=== PATIENT | male | born 1960 | race Caucasian/White ===

== ENCOUNTER 2018-04-03 11:04 | Outpatient (CLI) | payer MEDICAID, SELFPAY ==
--- NOTE | 2018-03-31 14:20 | DI.RAD_ITS ---
SYMPTOMS/DIAGNOSIS: NECK PAIN, M54.2 CERVICAL SPINE: The disc spaces are well maintained. The alignment appears normal. There are mild facet degenerative changes causing mild neural foraminal narrowing on the right at C5-6 and C6-7. IMPRESSION: Mild degenerative changes.
== END 2018-04-03 11:24 ==
PROVIDERS: PCP Nurse Practitioner; Visit Provider Family Medicine
DX: M54.2 Cervicalgia (principal); M47.812 Spondylosis without myelopathy or radiculopathy, cervical region
CPT/HCPCS: 72050

== ENCOUNTER 2018-07-28 08:49 | Outpatient (CLI) | payer MEDICAID, SELFPAY ==
--- NOTE | 2018-07-28 08:53 | DI.RAD_ITS ---
SYMPTOM/DIAGNOSIS: BILAT KNEE PAIN, M25.562, M25.561 LEFT KNEE: Three views. No priors. The articular surfaces appear well maintained. The bones are intact and normally mineralized. There is a well corticated osseous fragment seen adjacent to the anterior tibial tuberosity consistent with an old injury. The soft tissues are unremarkable. IMPRESSION: No acute abnormality. RIGHT KNEE: Three views. The articular surfaces are well maintained. The bones are intact and normally mineralized. The soft tissues are unremarkable. IMPRESSION: Negative examination.
== END 2018-07-28 09:09 ==
PROVIDERS: PCP Nurse Practitioner; Visit Provider Nurse Practitioner
DX: M25.561 Pain in right knee (principal); M25.562 Pain in left knee
CPT/HCPCS: 73562

== ENCOUNTER 2018-08-14 00:36 | Outpatient (CLI) | payer MEDICAID, SELFPAY ==
--- NOTE | 2018-08-14 10:12 | DI.MRI_ITS ---
SYMPTOMS/DIAGNOSIS: LT KNEE PAIN, M25.62 MRI OF THE LEFT KNEE: Routine noncontrast examination was performed. Comparison x-ray is 07/28/18. The anterior cruciate, posterior cruciate ligaments are intact as are the lateral collateral ligaments, extensor mechanism, medial and lateral retinaculum and popliteus tendon. There is mild increased signal seen within the fibers of the medial collateral ligament. There is a small amount of fluid seen surrounding the ligament. No evidence of a complete tear of the medial collateral ligament is present. There is marrow edema seen in the femoral condyles, medial greater than lateral. No evidence of an occult fracture or avascular necrosis is seen. The articular cartilage is well maintained. There is a small amount of fluid in the joint space. There is a small popliteal cyst measuring 2.7 cm in length x 0.6 cm in AP diameter. No soft tissue mass or other focal fluid collections are seen. There is mild edema seen in the prepatellar soft tissues. There is no evidence of a meniscal tear. IMPRESSION: 1. Abnormal signal within the medial collateral ligament and a small amount of fluid seen around the ligament. Findings suggestive of a grade II sprain of the MCL. 2. No evidence of a meniscal tear. 3. Marrow edema seen in the distal femur which may represent contusion. No evidence of an occult fracture. 4. Small popliteal cyst.
== END 2018-08-14 00:56 ==
PROVIDERS: PCP Nurse Practitioner; Visit Provider Nurse Practitioner
DX: M25.562 Pain in left knee (principal); S83.412A Sprain of medial collateral ligament of left knee, initial encounter; M71.22 Synovial cyst of popliteal space [Baker], left knee; M89.8X6 Other specified disorders of bone, lower leg
CPT/HCPCS: 73721

== ENCOUNTER 2018-08-31 00:52 | Outpatient (CLI) | payer MEDICAID, SELFPAY ==
--- NOTE | 2018-08-31 09:46 | DI.MRI_ITS ---
SYMPTOMS/DIAGNOSIS: RIGHT KNEE PAIN, M25.561 RIGHT KNEE MRI: MRI examination of the knee was performed according to the usual protocol. There was significant motion artifact on multiple pulse sequences. There is abnormal signal of the posterior-most aspect of the lateral tibial plateau and, on a couple of images, there appears to be a linear cortical signal abnormality consistent with nondisplaced fracture of uncertain age. There is abnormal signal in the tibial attachment of the lateral meniscus without evidence of a defined tear. There is abnormal signal in the popliteus muscle and tendon consistent with a partial-thickness tear and/or tendinosis. Medial meniscus appears intact. Cruciate ligaments appear intact. No other significant bony signal abnormality seen. Extensor mechanism is unremarkable except for some cartilage irregularity of the patellar and femoral articular cartilage at the lateral patellofemoral joint. CONCLUSION: Findings suggesting a nondisplaced fracture of posterior aspect of lateral tibial plateau of uncertain age. Possible nondisplaced tear, tibial attachment of the lateral meniscus. Popliteus tendinosis and/or partial- thickness tear.
== END 2018-08-31 01:12 ==
PROVIDERS: PCP Nurse Practitioner; Visit Provider Nurse Practitioner
DX: M25.561 Pain in right knee (principal); S82.141A Displaced bicondylar fracture of right tibia, initial encounter for closed fracture; S86.819A Strain of other muscle(s) and tendon(s) at lower leg level, unspecified leg, initial encounter; S83.281A Other tear of lateral meniscus, current injury, right knee, initial encounter
CPT/HCPCS: 73721

== ENCOUNTER 2018-10-05 13:58 | Outpatient (CLI) | payer MEDICAID, SELFPAY ==
--- NOTE | 2018-10-05 14:17 | W.PREOPHP ---
Date of service: 10/05/18 Assessment and Plan (1) Tear of lateral meniscus of right knee: Current visit: Yes Status: Chronic Right knee arthroscopy with possible partial lateral meniscectomy. Details of surgery were discussed with patient as well as risks and pertinent anatomy. All questions were answered. Qualifiers: Encounter type: subsequent encounter Meniscus tear of knee type: unspecified type Tear current or old: current Qualified Code(s): S83.281D - Other tear of lateral meniscus, current injury, right knee, subsequent encounter History of Present Illness Chief Complaint: Right knee pain Narrative: Ivan is a 58-year-old male comes in today for preop history and physical for right knee arthroscopy. He had an injury back in April where he was cutting down a tree and the tree kicked back at him causing him to fall. He did not have pain right away, but the next day he noticed that both of his knees are starting to bother him. He does not member any swelling in the knees. At that time he thought it was just a bruise, so he did not readily seek treatment right away. Eventually the left knee did start to get better, but the right knee continued to bother him. He was going to start physical therapy, but since he was still having pain in his right knee and had an orthopedics appointment, they held off on physical therapy. He has pain with going up and down stairs, as well as squatting and kneeling. He does not describe any specific instances of twisting that cause him pain. X-rays of the knee did not reveal any pathology, however MRI did reveal some signals in the lateral meniscus that may represent a tear. Since he has been dealing with this since April, Dr. Stephens suggests an arthroscopy of the left knee, and the patient is anxious to proceed. Pertinent Surgical Information Ivan does mention that experiences some chest pain, but notes that it is mostly when he is sitting down after he is eating, and he does have a pretty significant history of GERD. He denies any chest pain when he is active, going up and down stairs, or walking around outside which he does often. Patient denies history of hypertension, CVA, [place], angina, asthma, COPD, renal or liver disorders, hepatitis, bleeding disorders, diabetes, immune or thyroid disorders. No complications from anesthesia. Review of Systems Constitutional Denies fever(s) ENT Denies dizziness and Denies sore throat Cardiovascular Reports chest pain (Occurs in a seated position after eating. No chest pain with activity.), Denies palpitations and Denies dyspnea Respiratory Denies cough and Denies dyspnea Gastrointestinal Denies abdominal pain, Denies melena, Denies hematochezia, Denies diarrhea, Denies nausea and Denies vomiting Genitourinary Denies hematuria and Denies dysuria Neurologic Denies dizziness Endocrine Denies palpitations PFSH Medical History Neck and shoulder pain (Acute) Hiatal hernia (Chronic) Migraine headache (Chronic) Shingles (Acute) Dyspepsia GERD (gastroesophageal reflux disease) History of ETOH abuse Left shoulder pain Low back pain Eriberto-Schlatter's disease Sacral foraminal stenosis Surgical History Colonoscopy - MAC (12/16/17) Cyst removal, right hand EGD - [facility] (12/16/17) Family History Mother Diabetes Sister Diabetes Brother Hodgkins lymphoma Hypertension Social History Smoking/Tobacco Use Status: Current every day Drug use: Daily Do you feel safe in your relationship?: Yes Meds Home Medications Medication Instructions Recorded Confirmed Type gabapentin 800 mg PO TID tab-cap 11/07/17 10/05/18 History simvastatin 40 mg PO DAILY tab-cap 12/13/17 10/05/18 History lansoprazole [Prevacid] 15 mg PO DAILY 10/05/18 10/05/18 History sildenafil 25 mg tablet 25 mg PO DAILY PRN 10/05/18 10/05/18 History Allergies Allergy/AdvReac Type Severity Reaction Status Date / Time No Known Allergies Allergy Unverified 10/05/18 13:48 Exam [facility] Head: normocephalic and atraumatic General nose exam: no nasal discharge Throat: uvula midline and no uvular edema Other: soft palate rises symmetrically, no erythema Eyes Conjunctivae: conjunctivae normal Sclera: sclerae normal Pupils: PERRL Resp Effort & Inspection: normal respiratory effort Auscultation: clear to auscultation bilaterally and no wheezes Cardio Rate: regular rate Rhythm: regular rhythm Heart Sounds: S1 normal, S2 normal and no murmurs
--- NOTE | 2018-10-05 14:27 | HPE_ITS ---
Date of service: 10/05/18 Assessment and Plan (1) Tear of lateral meniscus of right knee: Current visit: Yes Status: Chronic Right knee arthroscopy with possible partial lateral meniscectomy. Details of surgery were discussed with patient as well as risks and pertinent anatomy. All questions were answered. Qualifiers: Encounter type: subsequent encounter Meniscus tear of knee type: unspecified type Tear current or old: current Qualified Code(s): S83.281D - Other tear of lateral meniscus, current injury, right knee, subsequent encounter History of Present Illness Chief Complaint: Right knee pain Narrative: Ivna is a 58-year-old male comes in today for preop history and physical for right knee arthroscopy. He had an injury back in April where he was cutting down a tree and the tree kicked back at him causing him to fall. He did not have pain right away, but the next day he noticed that both of his knees are starting to bother him. He does not me mber any swelling in the knees. At that time he thought it was just a bruise, so he did not readily seek treatment right away. Eventually the left knee did start to get better, but the right knee continued to bother him. He was going to start physical therapy, but since he was still having pain in his right knee and had an orthopedics appointment, they held off on physical therapy. He has pain with going up and down stairs, as well as squatting and kneeling. He does not describe any specific instances of twisting that cause him pain. X-rays of the knee did not reveal any pathology, however MRI did reveal some signals in the lateral meniscus that may represent a tear. Since he has been dealing with this since April, Dr. Stephens suggests an arthroscopy of the left knee, and the patient is anxious to proceed. Pertinent Surgical Information Ivan does mention that experiences some chest pain, but notes that it is mostly when he is sitting down after he is eating, and he does have a pretty significant history of GERD. He denies any chest pain when he is active, going up and down stairs, or walking around outside which he does often. Patient denies history of hypertension, CVA, [place], angina, asthma, COPD, renal or liver disorders, hepatitis, bleeding disorders, diabetes, immune or thyroid disorders. No complications from anesthesia. Review of Systems Constitutional Denies fever(s) ENT Denies dizziness and Denies sore throat Cardiovascular Reports chest pain (Occurs in a seated position after eating. No chest pain with activity.), Denies palpitations and Denies dyspnea Respiratory Denies cough and Denies dyspnea Gastrointestinal Denies abdominal pain, Denies melena, Denies hematochezia, Denies diarrhea, Denies nausea and Denies vomiting Genitourinary Denies hematuria and Denies dysuria Neurologic Denies dizziness Endocrine Denies palpitations [facility] Medical History Neck and shoulder pain (Acute) Hiatal hernia (Chronic) Migraine headache (Chronic) Shingles (Acute) Dyspepsia GERD (gastroesophageal reflux disease) History of ETOH abuse Left shoulder pain Low back pain Eriberto-Schlatter's disease Sacral foraminal stenosis Surgical History Colonoscopy - [facility] (12/16/17) Cyst removal, right hand EGD - [facility] (12/16/17) Family History Mother Diabetes Sister Diabetes Brother Hodgkins lymphoma Hypertension Social History Smoking/Tobacco Use Status: Current every day Drug use: Daily Do you feel safe in your relationship?: Yes Meds Home Medications Medication Instructions Recorded Confirmed Type gabapentin 800 mg PO TID tab-cap 11/07/17 10/05/18 History simvastatin 40 mg PO DAILY tab-cap 12/13/17 10/05/18 History lansoprazole [Prevacid] 15 mg PO DAILY 10/05/18 10/05/18 History sildenafil 25 mg tablet 25 mg PO DAILY PRN 10/05/18 10/05/18 History Allergies Allergy/AdvReac Type Severity Reaction Status Date / Time No Known Allergies Allergy Unverified 10/05/18 13:48 Exam [facility] Head: normocephalic and atraumatic General nose exam: no nasal discharge Throat: uvula midline and no uvular edema Other: soft palate rises symmetrically, no erythema Eyes Conjunctivae: conjunctivae normal Sclera: sclerae normal Pupils: PERRL Resp Effort & Inspection: normal respiratory effort Auscultation: clear to auscultation bilaterally and no wheezes Cardio Rate: regular rate Rhythm: regular rhythm Heart Sounds: S1 normal, S2 normal and no murmurs
== END 2018-10-05 14:18 ==
PROVIDERS: PCP Nurse Practitioner; Visit Provider Orthopaedic Surgery
DX: S83.281D Other tear of lateral meniscus, current injury, right knee, subsequent encounter (principal); Z01.818 Encounter for other preprocedural examination
CPT/HCPCS: NC

== ENCOUNTER 2018-10-09 07:30 | Day surgery (SDC) | payer MEDICAID, SELFPAY ==
[2018-10-09 07:49] VITALS: BP 116/79; PULSE 68; RESP 16; TEMP 35.6; O2SAT 99
[2018-10-09] MEDS: Lactated Ringers 1,000 ML 80 ML IV (08:14)
--- NOTE | 2018-10-09 11:25 | W.PM.DSUDISC ---
Discharge Plan Disposition Patient Disposition: HOME Condition: Good Discharge Details Reason For Visit: arthroscopy R knee Attending Provider: Jason Stephens Primary Care Provider: Caity Kulkarni Home Meds and New Rx's Prescriptions: New ibuprofen 800 mg tablet 800 mg PO TID Qty: 30 RF: 0 oxycodone-acetaminophen 5-325 mg tablet 1 tab PO Q6H PRN (Reason: pain) Qty: 14 RF: 0 Continued gabapentin 400 MG capsule 800 mg PO TID RF: 0 simvastatin 40 MG tablet 40 mg PO DAILY RF: 0 sildenafil [Viagra] 25 mg tablet 25 mg PO DAILY PRNRF: 0 lansoprazole [Prevacid] 15 mg Capsule,Delayed Release(Dr/Ec) 15 mg PO DAILY RF: 0 Discharge Instructions Additional Instructions: Crutches to walk. Put as much weight on R leg as your pain allows. Discontinue crutches when you can step on R leg with minimal pain. Apply cryocuff to R knee 4 times/day for 1 hour each time. Remove dressings, shower, and get incisions wet after 48 hours. Leave incisions uncovered when they are dry and sealed. Outpatient physical therapy on Tue or for rehab R knee post-arthroscopic plica excision. Follow up with in 2 weeks. Take ibuprofen as prescribed for 10 days. Take oxycodone, if needed, for breakthru pain. Referrals: Jason Stephens MD [ [facility] STAFF PHYSICIAN] - (f/u in 2 weeks.) Equipment/Supplies: Partial Weight Bearing Crutches Activity:: Activity as Tolerated Remove Dressings/Wound Care:: 48 hours Shower/Bathe:: 48 hours Diet:: As Tolerated Discharge Orders Discharge Orders: Discharge Order (Routine); Ordered 10/09/18 Ordered By: Jason Stephens DS: Diagnosis Discharge Diagnosis (1) Synovitis of right knee: Status: Acute
[2018-10-09 11:27] VITALS: BP 140/97; PULSE 62; RESP 11; TEMP 36.6; O2SAT 99
[2018-10-09 11:32] VITALS: BP 144/80; PULSE 56; RESP 11; TEMP 36.6; O2SAT 100
[2018-10-09 11:37] VITALS: BP 136/78; PULSE 58; RESP 10; TEMP 36.6; O2SAT 100
[2018-10-09 12:39] VITALS: BP 131/73; PULSE 65; RESP 18; TEMP 36.4; O2SAT 96
--- NOTE | 2018-10-09 17:12 | ROE_ITS ---
DATE OF PROCEDURE: October 09, 2018 PREOPERATIVE DIAGNOSIS: Internal derangement, right knee. POSTOPERATIVE DIAGNOSIS: Medial patella plica syndrome (synovitis, right knee). PROCEDURE: Arthroscopic resection of plica (limited synovectomy). ANESTHESIA: General. SURGEON: Jason Stephens M.D. INDICATIONS: This is a 58-year-old white male who has been bothered by right knee pain since an inju ry in April of 2018. He was cutting down a tree and the tree kicked back on him, causing him to fa ll. He began experiencing pain the following day, and that has persisted to this day. It hurts him to go up and down stairs, as well as with squatting and kneeling. He has not responded to conservati ve treatment. MRI scan was non-diagnostic. There was an abnormal signal in the posterior horn of th e lateral meniscus, and that was it. Because of failure to improve over the past five months, arthro scopy was recommended in order to determine an accurate diagnosis to provide a basis for treatment to alleviate his pain. The risks and complications of the procedure were explained to the patient in d etail preoperatively. PROCEDURE: The patient was taken to the Operating Room on 10/09/18. He was placed supine on the oper ating table and a general anesthetic was administered. The right leg was placed in the arthroscopic leg rosen and then the right knee was prepped and draped free in the usual sterile fashion. Arthros copic portals were established. The right knee was inflated with normal saline solution using the ar throscopy pump, and then routine arthroscopic examination proceeded. Intraoperative photographs were obtained to document findings. Upon entering the medial compartment, the medial meniscus was intact and undamaged. There was eviden ce of some Grade 1 OA in the medial compartment, mostly on the tibial plateau. Intercondylar notch with intact anterior and posterior cruciate ligaments. The lateral compartment showed a normal lateral meniscus and normal articular cartilage in the latera l compartment. The lateral meniscus was stable to probing with a right-angle probe. The suprapatell ar pouch was clear. There was a very distinct and pronounced medial patellar plica present. This di d, in fact, appear to impinge on the medial femoral condyle. Through a supermedial portal, the 90-de gree high radio frequency electrocautery wand was introduced and the plica was vaporized. The patell ofemoral joint showed normal patellar tracking and normal articular cartilage in the patellofemoral j oint. The right knee was irrigated with saline solution using the arthroscopy pump until the outflow was cl ear. 20 cc's of 0.5% Marcaine with an epinephrine solution along with 4 mg of morphine were instille d into the right knee and all instruments were removed from the knee. The arthroscopy portals were i nfiltrated with 0.5% Marcaine with an epinephrine solution and approximated with interrupted #4-0 Nyl on sutures. Sterile dressings were applied followed by a light compressive dressing to the right kne e. The patient's anesthesia was reversed without complications. Blood loss was minimal. He was dis charged to the recovery room in good condition. The patient was discharged home from the Day Surgery Unit when fully recovered from his general anest hesia. He was given instructions to elevate his right knee on one to two pillows as much as possible for the next 48 hours. He is to apply a Cryo Cuff to the right knee four times a day for an hour ea ch time. He may be weightbearing as tolerated with crutches. He may discontinue the crutches as pollo n as discomfort allows. He may remove his dressings, shower and get his incisions wet after 48 hours . He can leave the incisions uncovered when they are dry and sealed. He will begin outpatient physi key therapy on Tuesday or for range of motion and strengthening of his right knee. He was given a prescription for pain of Hydrocodone 5/325 one tablet every six hours, as needed. He will f ollow-up with me in two weeks.
== END 2018-10-09 13:10 | disposition home or self-care (01) ==
PROVIDERS: PCP Nurse Practitioner; Visit Provider Orthopaedic Surgery
PROC: (CPT 29870; principal; 2018-10-09 08:30)
DX: M67.51 Plica syndrome, right knee (principal); W19.XXXA Unspecified fall, initial encounter
CPT/HCPCS: 29875; E0114; J0690; J1100; J1885; J2405; J3010

== ENCOUNTER 2019-03-23 16:47 | Outpatient (REF) | payer MEDICAID, SELFPAY ==
[2019-03-23 20:57] LABS: ALT 30 U/L (16-63); AST 21 U/L (15-37); Anion Gap 12.6 mmol/L (3-11); BUN 13 mg/dL (7-18); C-Reactive Protein 0.13 mg/dL (0.0-0.3); CO2 24.4 mmol/L (21.0-32.0); CREATININE 1.11 mg/dL (0.70-1.30); Calcium 9.2 mg/dL (8.5-10.1); Chloride 103 mmol/L (98-107); Glucose 107 mg/dL (70-100); Potassium 3.8 mmol/L (3.5-5.1); Sodium 140 mmol/L (136-145)
[2019-03-23 21:23] LABS: ESR 13 mm/hr (1-20)
[2019-03-26 11:02] LABS: Rheumatoid Factor 8 IU/mL (<12.5)
== END 2019-03-23 17:07 ==
LOC: NCHCN 16:47
PROVIDERS: PCP Nurse Practitioner; Visit Provider Nurse Practitioner Family
DX: F10.11 Alcohol abuse, in remission (principal); Z79.899 Other long term (current) drug therapy; R25.2 Cramp and spasm
CPT/HCPCS: 80048; 85652; 84450; 84460; 86140; 86431

== ENCOUNTER 2019-12-20 11:32 | Outpatient (CLI) | payer MEDICAID, SELFPAY ==
[2019-12-20 11:39] VITALS: BP 123/83; PULSE 71; RESP 17; TEMP 36.7; O2SAT 97
--- NOTE | 2019-12-20 12:10 | DI.RAD_ITS ---
EXAM: XR PAIN CLINIC LUMBAR SP 2V CLINICAL HISTORY: Dx: Lumbar Radiculopathy. TECHNIQUE: Fluoroscopy was provided for the referring physician for guidance with performing pain cl inic injection procedure. COMPARISON: No exams were available for comparison FINDINGS: Please see procedure note for details. Fluoro time: 57.6 s, 12.19 mGy RADIATION DOSE DELIVERED:
[2019-12-20] MEDS: Omnipaque 240 MG/ML 50 ML BTL IJ (12:15)
[2019-12-20] MEDS: Dexamethasone Sod. Phos./Pres-Free 10 MG/ML VIAL IJ (12:15)
[2019-12-20 12:22] VITALS: BP 141/86; PULSE 71; RESP 12; O2SAT 98
--- NOTE | 2019-12-20 13:52 | PDOC.PAIN_ITS ---
Pain Clinic Procedure Note Procedure Note Procedure Note: LUMBAR / SACRAL TRANSFORAMINAL INJECTION GISEL TIJERINA has been referred to the [facility] for a transforaminal nerve root block and steroid injection. COMMENTS: He did very well with this procedure on 12/20/[address] Mcduffie. He was seen in our clinic for re-evaluation on 12/11/19. I did review his last lumbar spine MRI from 09/22/17. DX: Lumbosacral radiculopathy Patient was interviewed and the medical record reviewed. There were no medical, pharmacologic, radiographic or other structural contraindications to attempting fluoroscopically guided transforaminal nerve root block and epidural steroid injection. Risks and expected side effects as well as potential benefit of the procedure were reviewed and voiced concerns addressed. The printed consent form was signed and witnessed. Standard time-out procedure was performed. Patient was placed in the prone position on the fluoroscopy table and automated blood pressure cuff and pulse oximeter applied. Fluoroscopy was utilized to identify the [right L4-L5 neural foramen between L4 and L5. A skin jolie was made for the needle insertion site. A Chlorhexadine prep was carried out, and sterile drapes were applied. Local anesthesia was achieved in the skin and subcutaneous tissues. A 22 gauge curved tip spinal needle was then inserted, advanced with fluoroscopic guidance into the neural foramen, confirmed on the lateral view. After negative aspiration, 2 ml of Omnipaque 240 was injected confirming position in A/P and lateral views. This showed a good spread of dye transforaminally into the epidural space. There was no vascular update with contrast injection under continuous fluoroscopy and digital substraction. 15 mg of Dexamethasone was injected, followed by 0.5 ml of 1% Xylocaine flush for the nerve root block, as well. There was no unusual discomfort expressed.The needle was withdrawn. The patient tolerated the procedure well. A Band-Aid was applied. Vital signs were stable throughout the procedure and were as recorded in nursing records. If given, dosages of intravenous drugs for anxiolysis and analgesia were documented in nursing records. Follow up plans and appointments were discussed. Post procedure instruction was given as documented in nursing records and patient was discharged in the care of an identified local intermodal truck driver. COMMENTS:He can have this procedure up to 3 times per 12 months if it is found to be effective. CC: Caity Kulkarni
== END 2019-12-20 11:52 ==
PROVIDERS: PCP Nurse Practitioner; Visit Provider Preventive Medicine Occupational Medicine
DX: M54.17 Radiculopathy, lumbosacral region (principal)
CPT/HCPCS: 64483; 72100; Q9967

== ENCOUNTER 2020-01-29 13:50 | Outpatient (CLI) | payer MEDICAID, SELFPAY ==
--- NOTE | 2020-01-29 15:10 | PDOC.PAIN_ITS ---
Pain Clinic Procedure Note Procedure Note Procedure Note: LUMBAR / SACRAL TRANSFORAMINAL INJECTION GISEL TIJERINA has been [facility] to [facility] for a transforaminal nerve root block and steroid injection. Pre-operative diagnosis: lumbar radiculopathy Post-operative diagnosis: same as above COMMENTS: patient has had injections in the past which has helped alleviate his right leg symptoms. In 11/2019, he underwent right L4-5 TFESI which provided some pain relief lasting for 1 week and he continues to have right leg pain. he reports right groin pain and right posterior leg pain. It was discussed during his clinic evaluation with Ms Belkys Madison APRN that if right L4-5 TFESI fails to provide significant pain relief, then a trial of right L5-S1 TFESI will be tried. He is here for right L5-S1 TFESI today for both diagnostic and possible therapeutic purposes. please note MRI L spine done in 2017 showed severe right neural foraminal narrowing at L 4-5 and moderate to severe neural foraminal narrowing on the right at L 5-S1. Patient was interviewed and the medical record reviewed. There were no medical, pharmacologic, radiographic or other structural contraindications to attempting fluoroscopically guided transforaminal nerve root block and epidural steroid injection. Risks and expected side effects as well as potential benefit of the procedure were reviewed and voiced concerns addressed. The printed consent form was signed and witnessed. Standard time-out procedure was performed. Patient was placed in the prone position on the fluoroscopy table and automated blood pressure cuff and pulse oximeter applied. Fluoroscopy was utilized to identify the right neural foramen between L5 and sacral ala . A skin jolie was made for the needle insertion site. A Chlorhexadine prep was carried out, and sterile drapes were applied. Local anesthesia was achieved in the skin and subcutaneous tissues. A 22 gauge curved tip spinal needle was then inserted, advanced with fluoroscopic guidance into the neural foramen, however, there was resistance with bony prominence, despite multiple attempts, it was difficult to access the foramen. AP and lateral views were checked, needle cannot be further advanced into the foramen due to severe stenosis. I discussed with patient that we can change our approach to L5-S1 interlaminar with right paramedian approach. He was agreeable to this. I did discuss with patient that this would provide therapeutic value but unfortunately, will be less accurate in providing diagnostic value for a right L5-S1 nerve root block. He is interested in more pain relief and he is not ready to discuss surgical interventions at this point. With patient's verbal consent, procedure was changed to L5-S1 LESI. Using right paramedian approach, a 18 gauge Touhy needle was advanced in AP and then lateral views until it was engaged in ligamentum flavum. Using loss of resistance technique, needle gained access to the epidural space. After negative aspiration, 2 ml of Omnipaque 240 was injected confirming position in A/P and lateral views. This showed a good spread of dye into the posterior epidural space. There was no vascular update with contrast injection under continuous fluoroscopy. 15 mg of Dexamethasone was injected, followed by 0.5 ml of 1% lidocaine flush. There was no unusual discomfort expressed.The needle was withdrawn. The patient tolerated the procedure well. A Band-Aid was applied. Vital signs were stable throughout the procedure and were as recorded in nursing records. Follow up plans and appointments were discussed. Post procedure instruction was given as documented in nursing records and patient was discharged in the care of an identified pick up and delivery driver. COMMENTS: patient tolerated procedure well without issue. patient instructed to see which procedure provides more pain relief, LESI vs TFESI and future injections can be planned accordingly. I personally performed the entire procedure. Werner Muñoz MD Pain Management CC: Caity Kulkarni
[2020-01-29 15:23] VITALS: BP 114/71; PULSE 72; RESP 17; TEMP 36.5; O2SAT 97
--- NOTE | 2020-01-29 16:10 | DI.RAD_ITS ---
EXAM: XR PAIN CLINIC LUMBAR SP 2V CLINICAL HISTORY: Dx: Lumbar Radiculopathy. TECHNIQUE: Fluoroscopy was provided for the referring physician for guidance with performing injecti on procedure. COMPARISON: No exams were available for comparison FINDINGS: Please see procedure note for details. Fluoro Time: 79.9 sec RADIATION DOSE DELIVERED:
[2020-01-29] MEDS: Dexamethasone Sod. Phos./Pres-Free 10 MG/ML VIAL IJ (16:12)
[2020-01-29 16:13] VITALS: BP 135/88; PULSE 69; RESP 16; O2SAT 96
[2020-01-29] MEDS: Omnipaque 240 MG/ML 50 ML BTL IJ (16:13)
== END 2020-01-29 14:10 ==
PROVIDERS: PCP Nurse Practitioner; Visit Provider Internal Medicine
DX: M54.16 Radiculopathy, lumbar region (principal)
CPT/HCPCS: 64483; 72100; Q9967

== ENCOUNTER 2020-03-18 07:40 | Outpatient (CLI) | payer MEDICAID, SELFPAY ==
--- NOTE | 2020-03-18 06:00 | DI.RAD_ITS ---
EXAM: XR PAIN CLINIC LUMBAR SP 2V CLINICAL HISTORY: Dx: Lumbar Spondylosis TECHNIQUE: 2D and realtime digital imaging was performed. Fluoroscopy was provided in the OR COMPARISON: No exams were available for comparison FINDINGS: C-arm fluoroscopy utilized by Dr. Muñoz. Please see Dr. Muñoz's procedure note. Hard copies show needles p laced bilaterally adjacent to the facet joints at what appear to be the L3-4 L4-5 and L5-S1 levels. Fluoro time, 33 seconds. IMPRESSION: RADIATION DOSE DELIVERED: Total DLP
[2020-03-18 07:51] VITALS: BP 133/81; PULSE 71; RESP 16; TEMP 36.4; O2SAT 97
[2020-03-18] MEDS: Omnipaque 240 MG/ML 50 ML BTL IJ (08:28)
[2020-03-18] MEDS: Bupivacaine 0.5% Pres-Free 10 ML VIAL IJ (08:28)
--- NOTE | 2020-03-18 08:31 | PDOC.PAIN ---
Pain Clinic Procedure Note Procedure Note Procedure Note: Lumbar/Sacral Medial Branch Blocks GISEL TIJERINA has been referred to the [facility] for lumbar/sacral medial branch blocks. Pre-operative diagnosis: lumbar spondylosis Post-operative diagnosis: same as above COMMENTS: patient has axial back pain that is worse with bending forward than bending back - referred for diagnostic lumbar medial branch nerve block. Patient was interviewed and the medical record reviewed. There were no medical, pharmacologic, radiographic or other structural contraindications to attempting fluoroscopically guided local anesthetic lumbar/sacral medial branch blocks. Risks and expected side effects as well as potential benefit of the procedure were reviewed and voiced concerns addressed. The printed consent form was signed and witnessed. Standard time-out procedure was performed. Patient was placed in the prone position on the fluoroscopy table and automated blood pressure cuff and pulse oximeter applied. The skin entry points for approaching the anatomic target points of the segmental medial branches of bilateral L3, L4, L5-DR were identified with anfluoroscopy and marked. Following thorough Chlorhexadine preparation of the skin and draping and 1% lidocaine infiltration of the skin entry points and subcutaneous tissues, a 25 gauge spinal needle was placed under fluoroscopic guidance down on to the target point for each respective segmental medial branch.Position was confirmed in A/P, oblique and lateral views with 0.25ml of omnipaque 240. Coult be this method .5ml 0.5% Bupivacaine was injected or 1% Lidocaine. Vital signs were stable throughout the procedure and were as recorded in the docflowsheet by the nursing staff. Follow up plans and appointments were discussed and was instructed to keep careful note of how the usual pain was modified by these injections. Specifically was asked to keep a pain diary for the next 24 hours using a numeric pain scale of 0-10 and report these results at the follow-up visit. Post procedure instruction was given as documented in the nursing documentation and having met discharge criteria. Patient was discharged from the [facility]. Based on the medial branches blocked today, if the patient has adequate relief and we are able to proceed to radiofrequency ablation, the treatment should result in the denervation of the bilateral L4/5 and L5/S1. We would expect to denervate a total of 4 facets during the radiofrequency ablation. COMMENTS: patient tolerated procedure well. he is instructed to keep pain log for the next 4 hours and report to the pain clinic. I performed the entire procedure. Werner Muñoz MD Pain Management CC: Stressenger,Caity
[2020-03-18 08:38] VITALS: BP 143/96; PULSE 72; RESP 13; O2SAT 98
== END 2020-03-18 08:00 ==
PROVIDERS: PCP Nurse Practitioner; Visit Provider Internal Medicine
DX: M47.816 Spondylosis without myelopathy or radiculopathy, lumbar region (principal)
CPT/HCPCS: 64493; 64494; 72100; Q9967

== ENCOUNTER 2020-04-07 14:13 | Outpatient (REF) | payer MEDICAID, SELFPAY ==
[2020-04-11 09:41] LABS: 2-Hydroxy Ethyl Flurazepam Not Detected ng/mL (Cutoff: 10); 6-monoacetylmorphine Not Detected ng/mL (Cutoff: 25); Alpha-Hydroxy Midazolam Not Detected ng/mL (Cutoff: 10); Alpha-Hydroxy Triazolam Not Detected ng/mL (Cutoff: 10); Alpha-Hydroxyalprazolam Not Detected ng/mL (Cutoff: 10); Alpha-OH-alprazolam Glucuronid Not Detected ng/mL (Cutoff: 50); Alprazolam Not Detected ng/mL (Cutoff: 10); Amphetamines Negative ng/mL (Cutoff: 500); Barbiturates Negative ng/mL (Cutoff: 200); Buprenorphine Not Detected ng/mL (Cutoff: 5); Chlordiazepoxide Not Detected ng/mL (Cutoff: 10); Clobazam Not Detected ng/mL (Cutoff: 10); Clonazepam Not Detected ng/mL (Cutoff: 10); Cocaine Negative ng/mL (Cutoff: 150); Codeine Not Detected ng/mL (Cutoff: 25); Comment Normal; Creatinine, U 110.7 mg/dL; Diazepam Not Detected ng/mL (Cutoff: 10); Dihydrocodeine Not Detected ng/mL (Cutoff: 25); EDDP Present ng/mL (Cutoff: 25); Fentanyl Not Detected ng/mL (Cutoff: 2); Flurazepam Not Detected ng/mL (Cutoff: 10); Hydrocodone Not Detected ng/mL (Cutoff: 25); Hydromorphone Not Detected ng/mL (Cutoff: 25); Hydromorphone-3-beta-glucuroni Not Detected ng/mL (Cutoff: 100); Lorazepam Not Detected ng/mL (Cutoff: 10); Lorazepam Glucuronide Not Detected ng/mL (Cutoff: 50); Meperidine Not Detected ng/mL (Cutoff: 25); Methadone Present ng/mL (Cutoff: 25); Midazolam Not Detected ng/mL (Cutoff: 10); Morphine Not Detected ng/mL (Cutoff: 25); N-Desmethylclobazam Not Detected ng/mL (Cutoff: 200); N-desmethyltapentadol Not Detected ng/mL (Cutoff: 50); Naloxone Not Detected ng/mL (Cutoff: 25); Norbuprenorphine Not Detected ng/mL (Cutoff: 5); Norfentanyl Not Detected ng/mL (Cutoff: 2); Norhydrocodone Not Detected ng/mL (Cutoff: 25); Normeperidine Not Detected ng/mL (Cutoff: 25); Noroxycodone Not Detected ng/mL (Cutoff: 25); Noroxymorphone Not Detected ng/mL (Cutoff: 25); O-desmethyltramadol Not Detected ng/mL (Cutoff: 25); Oxazepam Glucuronide Not Detected ng/mL (Cutoff: 50); Phencyclidine Negative ng/mL (Cutoff: 25); Prazepam Not Detected ng/mL (Cutoff: 10); Propoxyphene Not Detected ng/mL (Cutoff: 25); Specific Gravity 1.011; Tapentadol Not Detected ng/mL (Cutoff: 25); Temazepam Not Detected ng/mL (Cutoff: 10); Temazepam Glucuronide Not Detected ng/mL (Cutoff: 50); Tetrahydrocannabinol Presumptive Positive ng/mL (Cutoff: 50); Tramadol Not Detected ng/mL (Cutoff: 25); Triazolam Not Detected ng/mL (Cutoff: 10); Zolpidem Phenyl-4-Carboxy acid Not Detected ng/mL (Cutoff: 10); pH 7.1
[2020-04-11 12:50] LABS: Carboxy-THC Interpretation Positive.; Delta-9 CarboxyThc by LC-MS/MS >500.0 ng/mL (Cutoff:<3)
== END 2020-04-07 14:33 ==
LOC: LBN 14:13
PROVIDERS: PCP Nurse Practitioner; Visit Provider Nurse Practitioner Family
DX: G89.29 Other chronic pain (principal); M47.817 Spondylosis without myelopathy or radiculopathy, lumbosacral region; Z79.899 Other long term (current) drug therapy
CPT/HCPCS: 80307; 80347; 80349; 80364

== ENCOUNTER 2020-05-06 07:44 | Outpatient (CLI) | payer MEDICAID, SELFPAY ==
[2020-05-06 07:51] VITALS: BP 138/88; PULSE 71; RESP 16; TEMP 37.1; O2SAT 98
[2020-05-06] MEDS: Omnipaque 240 MG/ML 50 ML BTL IJ (08:27)
[2020-05-06 08:35] VITALS: BP 150/91; PULSE 66; RESP 66; O2SAT 99
[2020-05-06] MEDS: Lidocaine 2% Pres-Free 5 ML VIAL IJ (08:35)
--- NOTE | 2020-05-06 08:38 | PDOC.PAIN ---
Pain Clinic Procedure Note Procedure Note Procedure Note: Lumbar/Sacral Medial Branch Blocks GISEL TIJERINA has been referred to the [facility] for lumbar/sacral medial branch blocks. Pre-operative diagnosis: lumbar spondylosis Post-operative diagnosis: same as above COMMENTS: patient has baseline tingling numbness down bilateral legs, as well as axial back pain. he also reports his back pain is worse with prolonged sitting. he underwent diagnostic lmbb, which he tells me today that provided ~50% pain relief. he stated that his baseline every day pain is 15 on a scale of 1 to 10, because it is off the charts - so he used his pain score based on his own pain scale of 15 when he spoke to our nursing staff which was perceived as less than 50% pain reduction. I discussed with patient that I understand chronic pain can be debilitating and a pain score is not always easy to report, but he should respect the standardization of a pain scale from 0 to 10, instead of using his own scale. In addition, for today's procedure, I asked him to focus on the percentage of pain reduction if a pain score is difficult to report. he voiced understanding. of note, patient has not had any PT for his back pain and he is interested in acupuncture as well. Patient was interviewed and the medical record reviewed. There were no medical, pharmacologic, radiographic or other structural contraindications to attempting fluoroscopically guided local anesthetic lumbar/sacral medial branch blocks. Risks and expected side effects as well as potential benefit of the procedure were reviewed and voiced concerns addressed. The printed consent form was signed and witnessed. Standard time-out procedure was performed. Patient was placed in the prone position on the fluoroscopy table and automated blood pressure cuff and pulse oximeter applied. The skin entry points for approaching the anatomic target points of the segmental medial branches of bilateral L3, L4, L5-DR were identified with anfluoroscopy and marked. Following thorough Chlorhexadine preparation of the skin and draping and 1% lidocaine infiltration of the skin entry points and subcutaneous tissues, a 25 gauge spinal needle was placed under fluoroscopic guidance down on to the target point for each respective segmental medial branch.Position was confirmed in A/P, oblique and lateral views with 0.25ml of omnipaque 240. Coult be this method .5ml of 2% Lidocaine was injected. Vital signs were stable throughout the procedure and were as recorded in the docflowsheet by the nursing staff. Follow up plans and appointments were discussed and was instructed to keep careful note of how the usual pain was modified by these injections. Specifically was asked to keep a pain diary for the next 24 hours using a numeric pain scale of 0-10 and report these results at the follow-up visit. Post procedure instruction was given as documented in the nursing documentation and having met discharge criteria. Patient was discharged from the [facility]. Based on the medial branches blocked today, if the patient has adequate relief and we are able to proceed to radiofrequency ablation, the treatment should result in the denervation of the bilateral L4/5 and L5/S1. We would expect to denervate a total of 4 facets during the radiofrequency ablation. COMMENTS: patient tolerated procedure well. I performed the entire procedure. Werner Muñoz MD Pain Management CC: Caity Kulkarni
--- NOTE | 2020-05-06 08:40 | DI.RAD_ITS ---
EXAM: XR PAIN CLINIC LUMBAR SP 2V CLINICAL HISTORY: Dx: Lumbar Spondylosis, LUMBAR MEDIAL BRANCH BLOCK TECHNIQUE: Fluoroscopy was provided for the referring physician for guidance with performing injecti on procedure. COMPARISON: No exams were available for comparison FINDINGS: Please see procedure note for details. FLUORO TIME: 55.7 seconds RADIATION DOSE DELIVERED:
== END 2020-05-06 08:04 ==
PROVIDERS: PCP Nurse Practitioner; Visit Provider Internal Medicine
DX: M47.816 Spondylosis without myelopathy or radiculopathy, lumbar region (principal)
CPT/HCPCS: 64493; 64494; 72100; Q9967

== ENCOUNTER 2020-05-08 13:40 | Outpatient (CLI) | payer MEDICAID, SELFPAY ==
--- NOTE | 2020-05-08 06:00 | DI.RAD_ITS ---
EXAM: XR PAIN CLINIC LUMBAR SP 2V CLINICAL HISTORY: Dx:Lumbar Spondylosis TECHNIQUE: 2D and realtime digital imaging was performed. CONTRAST MATERIAL: Refer to procedure report. COMPARISON: No exams were available for comparison FINDINGS: Fluoroscopy was provided for Dr. Fremean during the performance of a bilateral lumbar radiofrequency ab lation. Please refer to the procedure report for complete details. Fluoro time: 96.9 seconds IMPRESSION:
[2020-05-08 13:57] VITALS: BP 133/80; PULSE 66; RESP 17; TEMP 37.2; O2SAT 98
[2020-05-08] MEDS: Midazolam 2 MG/2 ML VIAL IVP (14:47)
[2020-05-08] MEDS: Lactated Ringers 1,000 ML 80 ML IV (14:47)
[2020-05-08] MEDS: fentaNYL 100 MCG/2 ML VIAL IVP (14:48)
[2020-05-08 15:24] VITALS: BP 146/96; PULSE 62; RESP 12; O2SAT 98
[2020-05-08] MEDS: methylPREDNISolone ACETATE 40 MG/ML VIAL IJ (15:35)
[2020-05-08] MEDS: Bupivacaine 0.5% Pres-Free 10 ML VIAL IJ (15:35)
[2020-05-08] MEDS: Lidocaine 2% Pres-Free 5 ML VIAL IJ (15:36)
[2020-05-08] MEDS: Lidocaine 1% Pres-Free 5 ML VIAL IJ (15:36)
--- NOTE | 2020-05-08 15:36 | PDOC.PAIN_ITS ---
Pain Clinic Procedure Note Procedure Note Procedure Note: Bilateral Lumbar Radiofrequency with Coolief Machine PROCEDURE NOTE Date of Service: May 08, 2020 Patient: GISEL TIJERINA Provider: Toby Freeman DO, MPH Pre Operative Diagnosis: Lumbosacral spondylosis without myelopathy Post Operative Diagnosis: Same PROCEDURE: Radiofrequency Ablation of medial branches - Bilateral L3 L4 L5 and the bilateral S1 lateral branches GISEL TIJERINA was brought into the fluoroscopy suite and positioned into the pr one position on the fluoroscopy table and allowed to adjust to a position of comfort. A grounding pad was placed on the [right/left] thigh. The lumbar region was widely prepped with a chloraprep solution, allowed to air dry and draped in standard sterile surgical fashion. Local anesthesia was provided by [] mL of [] % [] delivered with a 25g needle. A 17g 75/100/150mm radiofrequency introducer needle was placed to the planned anatomic targets guided with intermittent fluoroscopy with a perpendicular approach to terminally place at the junction of the superior articular process and the transverse process of the bilateral L3 L4 L5 and the base of the sacral ala bilaterally for the L5 medial branch nerve and just above the bilateral S1 neuroforamin for the bilateral S1 lateral branches. The stylets were removed and radiofrequency probes with a 4mm active tip were then inserted. Needle tip position of the probes was verified in the AP, oblique, and lateral views. At each site, the medial branch nerve was stimulated at 2 Hz to a maximum 1-2 volts determined to finalize safe needle and electrode placement. The patient was awake and responsive during this portion of the procedure. Each target was anesthetized with 1-2 mL of [] % [] for anesthesia for lesioning and then each target was lesioned at 80 degrees Celsius for 2 minutes and 30 seconds. Tissue impedences were noted to be between 250 and 500 Ohms. I injected 1/4cc of Depomedrol (40 mg/cc) and 1 cc of 0.5% Bupivacaine at each segmental nerve after the ablation. Electrodes and needles were then removed and bandages placed over the needle placement sites, the patient then returned to the supine position on a stretcher and transported to the recovery room without hemodynamic, neurologic, or allergic reactions. Fluoroscopic images were printed for hard copy recording and digitally archived. Follow up plans and appointments were discussed with the GISEL . Post procedure instruction was given as documented in nursing documentation and having met discharge criteria, GISEL was discharged from the [facility]. COMMENTS: No complications. F/U with our office as needed. I personally performed this entire procedure. Toby Freeman DO, MPH Attending Physician
== END 2020-05-08 14:00 ==
PROVIDERS: PCP Nurse Practitioner; Visit Provider Preventive Medicine Occupational Medicine
DX: M47.817 Spondylosis without myelopathy or radiculopathy, lumbosacral region (principal)
CPT/HCPCS: 64635; 64636; 72100; J1030; J2250; J3010

== ENCOUNTER 2020-06-21 21:40 | Emergency (ER) | payer MEDICAID, SELFPAY ==
[2020-06-21 21:49] VITALS: BP 155/74; PULSE 73; RESP 24; TEMP 36.6; O2SAT 100
--- NOTE | 2020-06-21 22:15 | ED.GENADUL_ITS ---
Discharge Plan Disposition Patient Disposition: HOME Condition: Stable Discharge Details Clinical Impression: Kidney stone on left side Primary Care Provider: Caity Kulkarni ED Provider: Chitra Veliz Home Meds and New Rx's Prescriptions: New tamsulosin 0.4 mg capsule 0.4 mg PO DAILY Qty: 7 RF: 0 ketorolac 10 mg tablet 10 mg PO TID PRN (Reason: pain) 5 Days Qty: 15 RF: 0 Continued meloxicam 7.5 mg Tablet 7.5 mg PO BID RF: 0 lidocaine 3 % Cream 1 applic TOPICAL QID PRNRF: 0 gabapentin 400 MG capsule 800 mg PO TID RF: 0 simvastatin 40 MG tablet 40 mg PO DAILY RF: 0 lansoprazole [Prevacid] 15 mg Capsule,Delayed Release(Dr/Ec) 15 mg PO DAILY RF: 0 Discharge Instructions Instructions: Kidney Stones (ED) Additional Instructions: You have a kidney stone on the left side where your pain is. This should pass on its own. Do need to follow-up with urology if continued pain after 3 to 5 days. Increase oral fluids. Follow up with primary care provider in 3-5 days. Return to ED sooner if any worsening or concerns. Increase oral fluids. Take pain medication as directed and Flomax daily. Return to the ED for any fever, continued vomiting unable to urinate or any concerns. Referrals: Keagan Hameed MD [ [facility] STAFF PHYSICIAN] - Caity Kulkarni [Primary Care Provider] - Discharge Data Discharge Date/Time-TO BE ENTERED AT DEPARTURE: 06/22/20 00:40 Medical Decision Making 59-year-old male presents to the ER with chief complaint of abdominal pain. He reports left-sided flank pain which radiates around into his left lower quadrant. Associated with nausea and vomiting which began around 7:00 tonight. He states that he ate some cranberries and drank some alcohol and then the pain began. He denies having any abdominal surgeries in the past. He does have a past medical history of GERD, hyperlipidemia, dyspepsia. COMPARISON: No relevant prior studies available. FINDINGS: Lungs: Streaky and hazy opacity at the lung bases. Atelectasis suspected. Mediastinal space: Small hiatal hernia. Liver: Normal appearing liver. Gallbladder and bile ducts: Normal appearing gallbladder. No calcified gallstones. No biliary dilatation. Pancreas: Grossly unremarkable unenhanced pancreas. Spleen: Grossly unremarkable unenhanced spleen. Adrenal glands: Normal appearing adrenal glands. Kidneys and ureters: 2 mm stone at the left ureterovesical junction with upstream ureterectasis, periureteral edema, mild hydronephrosis, and perinephric edema in keeping with obstructive uropathy. No right-sided urinary tract stones or hydronephrosis. Stomach and bowel: No oral contrast. Stomach partially decompressed. No small bowel dilatation to suggest obstruction. Scattered colonic diverticula but no convincing evidence of diverticulitis or colitis. Appendix: Normal appendix. Intraperitoneal space: No gross ascites or free air. Vasculature: Normal caliber abdominal aorta. Lymph nodes: No pathologically enlarged mesenteric, retroperitoneal, or pelvic sidewall lymph nodes. Urinary bladder: Normal-appearing urinary bladder. Reproductive: Normal-appearing prostate gland and seminal vesicles. Bones/joints: No acute fracture seen among the bones of the abdomen or pelvis. Spinal degenerative change with discogenic degeneration and small Schmorl's nodes at several levels. Prominent bilateral facet arthrosis at L4-L5 and L5-S1. Spina bifida occulta at L5. Soft tissues: Tiny fat-containing ventral hernia at the umbilicus, doubtful clinical significance. IMPRESSION: 2 mm obstructing stone at the left ureterovesical junction. CBC shows white blood cell count of 17.14, sodium 139, potassium 4.0, BUN is 12, creatinine 1.45 GFR is 50.1, glucose 125 magnesium 1.7. Troponin is negative less than 0.05, urinalysis shows 15 ketones negative leukocytes, Negative nitrates. Discussed CT results with patient he did get relief from 30 mg of Toradol. He did receive multiple antiemetics Zofran while in department. He verbalizes understanding is much more comfortable on reevaluation. Discussed follow-up with urology will give tamsulosin here in department discussed return instructions, verbalized understanding. Patient was placed on the urology follow-up list with care management. HPI General Mode of arrival: ambulatory . Date/Time Provider Initiated Documentation: 06/21/20 21:41 . Limitations to Documentation: no limitations . Information obtained by: patient . HPI Narrative: 59-year-old male presents to the ER with chief complaint of abdominal pain. He reports left-sided flank pain which radiates around into his left lower quadrant. Associated with nausea and vomiting which began around 7:00 tonight. He states that he ate some cranberries and drank some alcohol and then the pain began. He denies having any abdominal surgeries in the past. He does have a past medical history of GERD, hyperlipidemia, dyspepsia. Related Data Home Medications Medication Instructions Recorded Confirmed gabapentin 800 mg PO TID tab-cap 11/07/17 06/21/20 simvastatin 40 mg PO DAILY tab-cap 12/13/17 06/21/20 lansoprazole [Prevacid] 15 mg PO DAILY 10/05/18 06/21/20 lidocaine 1 applic TOPICAL QID PRN 12/04/19 06/21/20 meloxicam 7.5 mg PO BID 12/04/19 06/21/20 ketorolac 10 mg PO TID PRN 5 Days #15 tab 06/22/20 tamsulosin 0.4 mg PO DAILY #7 cap 06/22/20 Previous Rx's Medication Instructions Recorded ketorolac 10 mg PO TID PRN 5 Days #15 tab 06/22/20 tamsulosin 0.4 mg PO DAILY #7 cap 06/22/20 Allergies Allergy/AdvReac Type Severity Reaction Status Date / Time No Known Allergies Allergy Verified 06/21/20 21:52 General Stated Complaint: Abd Prob ROB: 3 Review of Systems Narrative: Constitutional: Negative for weight loss, alert and oriented, well groomed, normal body habitus, appears comfortable. HEENT: Denies trauma, headaches, blurry vision, nasal discharge, sore throat, trouble swallowing. Chest: Denies chest pain, palpitations, irregular rhythm, hypertension. Respiratory: Denies Shortness of breath, cough, hemoptysis. GI: Denies diarrhea, constipation. Positive abdominal pain, positive nausea vomiting. : Denies dysuria, hematuria, positive left flank pain. Denies rectal bleeding. Neuro: Denies dizziness, blurry vision, weakness, syncope, headache or facial numbness. Hematologic: Denies easy bruising, intolerance to heat or cold, hair loss. [facility] Medical History Dyspepsia Erectile dysfunction GERD (gastroesophageal reflux disease) Hiatal hernia History of ETOH abuse Joint pain Knee joint pain greater than three months. B/L Left shoulder pain Low back pain Migraine headache Muscle cramps Neck and shoulder pain Eriberto-Schlatter's disease Paresthesia Sacral foraminal stenosis Shingles Shoulder joint pain Tobacco use Weight loss Surgical History Colonoscopy - [facility] (12/16/17) Cyst removal, right hand Trigger finger release of the right hand EGD - [facility] (12/16/17) Family History Mother Diabetes Sister Diabetes Brother Hodgkins lymphoma Hypertension Social History Smoking/Tobacco Use Status: Current every day Smoking risk assessment performed?: Yes Alcohol Intake: current Alcohol Intake frequency: a few times a week Alcohol type: hard liquor Drug use: Daily Substance use type: marijuana Household members: significant other Housing: house Number of Children: 2 current occupation: Disabled What type of physical activity do you participate in: walking, independent ambulation and regular exercise Do you feel safe at home: Yes Do you feel safe in your relationship?: Yes Exam Narrative Exam Narrative: Constitutional: Alert and oriented x3. Appears stated age. Normal body habitus. Head: Normocephalic, no trauma. Eyes: Pupils PERRLA, Red reflex noted, EOM's intact. Eyelids symmetrical without lesions, discharge, or swelling. ENT: Bilateral TM's WNL, External ear normal to inspection, no mastoid TTP, swelling, or erythema, Nasal turbinates WNL, no nasal discharge. Normal dentition, Posterior pharynx WNL, no exudate. Chest: RRR, Normal S1, S2, distal pulses intact. Resp: Lungs clear to auscultation bilaterally, no wheezes, rales, or rhonchi. Abdomen: No CVA tenderness, abdomen is soft nondistended. Musculoskeletal: Normal gait, 5/5 strength to all four extremities. Skin: No suspicious rashes or lesions. Capillary refill less than 2 sec. Neurologic: Cranial nerves II-XII intact. Alert and oriented x 3. DTR's intact. Hematologic/Lymphatic: No ecchymosis, no lymphadenopathy. Course Vital Signs Vital signs: Vital Signs Temperature 36.6 C 06/21/20 21:49 Pulse 73 06/21/20 21:49 Respiratory Rate 24 06/21/20 21:49 Blood Pressure 155/74 H 06/21/20 21:49 Pulse Oximetry 100 06/21/20 21:49 Temperature 36.6 C 06/21/20 21:49 Temperature Source Temporal Artery Scan 06/21/20 21:49 Pulse 73 06/21/20 21:49 Respiratory Rate 24 06/21/20 21:49 Respiratory Effort 06/21/20 22:03 Blood Pressure 155/74 H 06/21/20 21:49 Blood Pressure Position Sitting 06/21/20 21:49 Pulse Oximetry 100 06/21/20 21:49 Oxygen Delivery Method Room Air 06/21/20 21:49 Oxygen Flow Rate 0 06/21/20 21:49 Pain Level 8 06/21/20 21:49
[2020-06-21] MEDS: Normal Saline 1,000 ML 1000 ML IV (22:21)
[2020-06-21] MEDS: Ondansetron 4 MG/2 ML VIAL IVP (22:21)
[2020-06-21 22:36] LABS: Abs Immature Grans 0.06 10^3/uL (0.0-0.06); Absolute Basophil Count 0.09 10^3/uL (0.0-0.2); Absolute Lymphocyte Count 1.99 10^3/uL (1.2-3.4); Absolute Monocyte Count 0.74 10^3/uL (0.1-0.8); Absolute Neutrophil Count 11.16 10^3/uL (1.2-6.7); Basophils % 0.5; Eosinophils % 18.1; HCT 48.3 % (40.0-50.0); HGB 16.5 g/dL (13.5-17.5); Immature Grans % 0.4; Lymphocytes % 11.6; MCH 31.6 pg (27.0-33.0); MCHC 34.2 % (32.0-36.0); MCV 92.5 fL (80-95); MPV 11.6 fL (8.0-11.0); Monocytes % 4.3; Neutrophils % 65.1; Nucleated RBC 0 %; Platelet Count 243 10^3/uL (130-400); RBC 5.22 10^6/uL (4.36-5.78); RDW 11.7 % (11.8-14.1); RDW-SD 40.1 fL; WBC 17.14 10^3/uL (4.4-10.8)
[2020-06-21 22:48] LABS: Diff Comment Agrees w/ Instrument
[2020-06-21 22:49] LABS: RBC Morphology Normal
[2020-06-21 22:55] VITALS: TEMP 36.4; O2SAT 98
[2020-06-21] MEDS: Ketorolac 30 MG/ML VIAL IVP (23:12)
[2020-06-21 23:14] LABS: ALT 18 U/L (16-63); AST 24 U/L (15-37); Albumin 4.2 g/dL (3.4-5.0); Alkaline Phosphatase 91 U/L (46-116); BUN 12 mg/dL (7-18); Bilirubin, Total 0.5 mg/dL (0.2-1.0); CREATININE 1.45 mg/dL (0.70-1.30); Chloride 104 mmol/L (98-107); Estimated GFR 50.16 (mL/min/1.73m2); Glucose 125 mg/dL (74-106); Lipase 270 U/L (73-393); Magnesium 1.7 mg/dL (1.8-2.4); Sodium 139 mmol/L (136-145); Total Protein 7.5 g/dL (6.4-8.2)
--- NOTE | 2020-06-21 23:15 | DI.CT_ITS ---
EXAM: CT ABDOMEN PELVIS WO CLINICAL HISTORY: Left flank pain,. TECHNIQUE: Imaging Protocol: Axial computed tomography images with coronal and sagittal reformatted images were created and reviewed. COMPARISON: No exams were available for comparison FINDINGS: ABDOMEN: Lung Bases: g Liver: No obvious hepatic lesions evident. Gallbladder and biliary tract: No obvious gallbladder pathology. CBD is not dilated. Pancreas: Normal density, no abnormal calcifications or inflammatory process. Spleen: Not enlarged. Kidneys: Right kidney is unremarkable. On the left side there is an intramural calculus at the left ureterovesical junction measuring approximately 2-3 millimeters. There is dilatation of the left col lecting system above this level.. Perinephric streaking around left kidney is also noted. Adrenal glands: No mass is seen. Lymph nodes: Within normal limits. Abdominal Aorta: Abdominal portion non-dilated. There is no evidence of significant anterior abdominal wall hernia nor bowel obstruction or free air. PELVIS: Bladder:Symmetric distention, no gross wall thickening. Bowel: There is sigmoid diverticulosis. No obvious acute diverticulitis. No evidence for acute appe ndicitis. Reproductive organs: Within normal limits. Bones: No lytic lesion seen IMPRESSION: The main finding here is a 3 millimeter calculus at the intramural aspect of the left ureterovesical junction with some dilatation left collecting system above this level and left perinephric streaking. The opposite-right kidney is unremarkable. RADIATION DOSE DELIVERED: 700.43mGy.cm Total DLP DATA REPOSITORY: All CT scans at this facility are submitted to the National Radiology Data Registry (NRDR) Dose Index Registry (DIR) with the [employer] (ACR). RADIATION OPTIMIZATION: All CT scans at this facility use at least one of these dose optimization te chniques: automated exposure control; mA and/or kV adjustment per patient size (includes targeted exa ms where dose is matched to clinical indication); or iterative reconstruction.
[2020-06-21 23:16] LABS: Troponin I < 0.05 ng/mL (<0.06)
--- NOTE | 2020-06-21 23:53 | NUR.NOTE ---
pt returned from CT scan vomiting . he states that he had felt much better for a short time Nursing Note:
[2020-06-21 23:57] VITALS: BP 160/95; PULSE 54; RESP 16; TEMP 36.4; O2SAT 100
[2020-06-22] MEDS: Ondansetron 4 MG/2 ML VIAL IVP (00:04)
--- NOTE | 2020-06-22 00:13 | DI.VRAD_ITS ---
PROCEDURE INFORMATION: Exam: CT Abdomen And Pelvis Without Contrast Exam date and time: 06/21/2020 11:22 PM Age: 59 years old Clinical indication: Abdominal pain TECHNIQUE: Imaging protocol: Computed tomography of the abdomen and pelvis without contrast. COMPARISON: No relevant prior studies available. FINDINGS: Lungs: Streaky and hazy opacity at the lung bases. Atelectasis suspected. Mediastinal space: Small hiatal hernia. Liver: Normal appearing liver. Gallbladder and bile ducts: Normal appearing gallbladder. No calcified gallstones. No biliary dilatation. Pancreas: Grossly unremarkable unenhanced pancreas. Spleen: Grossly unremarkable unenhanced spleen. Adrenal glands: Normal appearing adrenal glands. Kidneys and ureters: 2 mm stone at the left ureterovesical junction with upstream ureterectasis, periureteral edema, mild hydronephrosis, and perinephric edema in keeping with obstructive uropathy. No right-sided urinary tract stones or hydronephrosis. Stomach and bowel: No oral contrast. Stomach partially decompressed. No small bowel dilatation to suggest obstruction. Scattered colonic diverticula but no convincing evidence of diverticulitis or colitis. Appendix: Normal appendix. Intraperitoneal space: No gross ascites or free air. Vasculature: Normal caliber abdominal aorta. Lymph nodes: No pathologically enlarged mesenteric, retroperitoneal, or pelvic sidewall lymph nodes. Urinary bladder: Normal-appearing urinary bladder. Reproductive: Normal-appearing prostate gland and seminal vesicles. Bones/joints: No acute fracture seen among the bones of the abdomen or pelvis. Spinal degenerative change with discogenic degeneration and small Schmorl's nodes at several levels. Prominent bilateral facet arthrosis at L4-L5 and L5-S1. Spina bifida occulta at L5. Soft tissues: Tiny fat-containing ventral hernia at the umbilicus, doubtful clinical significance. IMPRESSION: 2 mm obstructing stone at the left ureterovesical junction. Dictated and Authenticated by: Tony Gomez MD. Ordering:LUZ MARIA Buenrostro MD
[2020-06-22 00:55] VITALS: BP 140/86; PULSE 71; RESP 16; TEMP 36.6; O2SAT 99
[2020-06-22] MEDS: Tamsulosin 0.4 MG CAPCR PO (00:55)
[2020-06-22 01:08] LABS: Bilirubin Negative (Negative); Blood Negative (Negative); Clarity Clear (Clear); Glucose Negative (Negative); Ketones 15 mg/dL (Negative); Leukocyte Esterase Negative (Negative); Nitrite Negative (Negative); Specific Gravity 1.025 (1.005-1.025); Urobilinogen 0.2 EU/dL (Up TO 0.2)
--- NOTE | 2020-06-22 02:42 | NUR.NOTE ---
referral faxed to DR. Hameed for follow up care regarding todays visit. Nursing Note:
== END 2020-06-22 00:40 | disposition home or self-care (01) ==
PROVIDERS: Emergency Provider Registered Nurse Emergency; PCP Nurse Practitioner
DX: N13.2 Hydronephrosis with renal and ureteral calculous obstruction (principal)
CPT/HCPCS: 36415; 80053; 83690; 96361; 96374; 96375; 96376; 99284; 74176; 81003; 83735; 84484; 85025; J1885; J2405

== ENCOUNTER 2020-07-31 14:05 | Outpatient (REF) | payer MEDICAID, SELFPAY ==
[2020-07-31 14:25] LABS: ALT 26 U/L (16-63); AST 21 U/L (15-37); Anion Gap 5.6 mmol/L (3-11); BUN 15 mg/dL (7-18); CO2 30.4 mmol/L (21.0-32.0); CREATININE 1.12 mg/dL (0.70-1.30); Calcium 9.1 mg/dL (8.5-10.1); Chloride 103 mmol/L (98-107); Glucose 80 mg/dL (74-106); Potassium 4.7 mmol/L (3.5-5.1); Sodium 139 mmol/L (136-145)
[2020-07-31 21:34] LABS: PSA, Screening 0.4 ng/mL (0.0-3.5)
[2020-08-01 09:37] LABS: HIV-1/2 Ag & Ab Screen Negative (Negative)
[2020-08-01 15:35] LABS: Chlamydia Result Negative (Negative); GC Result Negative (Negative)
== END 2020-07-31 14:25 ==
LOC: NCHCN 14:05
PROVIDERS: PCP Nurse Practitioner; Visit Provider Nurse Practitioner Family
DX: Z00.00 Encounter for general adult medical examination without abnormal findings (principal); F10.11 Alcohol abuse, in remission; Z11.3 Encounter for screening for infections with a predominantly sexual mode of transmission; Z11.4 Encounter for screening for human immunodeficiency virus [HIV]; Z12.5 Encounter for screening for malignant neoplasm of prostate
CPT/HCPCS: 80048; 84153; 87389; 87491; 87591; 84450; 84460

== ENCOUNTER 2020-08-04 01:20 | Outpatient (CLI) | payer MEDICAID, SELFPAY ==
--- NOTE | 2020-08-04 | DI.CTLCSR_ITS ---
EXAM: CT CHEST LUNG CANCER SCREEN CLINICAL HISTORY: SCREENING FOR LUNG CA,TOBACCO USE,Z72.0,CURRENT SMOKER. TECHNIQUE: Imaging Protocol: Low Dose Technique CONTRAST MATERIAL: None COMPARISON: No exams were available for comparison. FINDINGS: CHEST: LUNGS: There are no ominous pulmonary nodules. Mild increased markings in the lingular segment left lung. No pleural effusions. Significant focal findings in the trachea and mainstem bronchi. MEDIASTINUM: There is no obvious hilar nor mediastinal adenopathy. CARDIAC: Heart size is normal. There is no pericardial effusion.Caliber of the thoracic aorta is wit hin normal limits. OSSEOUS: No significant osseous lesions.. IMPRESSION: 1. No ominous pulmonary nodules. No pleural effusions. No obvious intrathoracic adenopathy Lung rads 1-negative Study. RADIATION DOSE DELIVERED: 87.13mGy.cm Total DLP DATA REPOSITORY: All CT scans at this facility are submitted to the National Radiology Data Registry (NRDR) Dose Index Registry (DIR) with the [employer] (ACR). RADIATION OPTIMIZATION: All CT scans at this facility use at least one of these dose optimization te chniques: automated exposure control; mA and/or kV adjustment per patient size (includes targeted exa ms where dose is matched to clinical indication); or iterative reconstruction.
== END 2020-08-04 01:40 ==
PROVIDERS: PCP Nurse Practitioner Family; Visit Provider Nurse Practitioner Family
DX: F17.210 Nicotine dependence, cigarettes, uncomplicated (principal)
CPT/HCPCS: 71271

== ENCOUNTER 2020-08-13 02:19 | Outpatient (CLI) | payer MEDICAID, SELFPAY ==
--- NOTE | 2020-08-13 06:45 | DI.US_ITS ---
EXAM: US RENAL CLINICAL HISTORY: monitoring hydro after kidney stone,N20.0. TECHNIQUE: Morrow scale, color and spectral Doppler were used. COMPARISON: CT CT ABDOMEN PELVIS WO from 06/21/2020 FINDINGS: Renal size in cm: Right: 9.5. Left: 9.8. Echogenicity: Normal. Hydronephrosis: No. Cyst or mass: No. Nephrolithiasis: No. Other findings: None. Bladder:Normal. Ureteral jets: Right: Visualized and unremarkable. Left: Visualized and unremarkable. Prevoid vol:31 cc Postvoid vol:4 cc Prostate: Not visualized. Renal color flow: Symmetric and within normal limits. IMPRESSION: No evidence of hydronephrosis. DATA REPOSITORY:
== END 2020-08-13 02:39 ==
PROVIDERS: PCP Nurse Practitioner Family; Visit Provider Nurse Practitioner Gerontology
DX: N20.0 Calculus of kidney (principal)
CPT/HCPCS: 76770

== ENCOUNTER 2020-09-11 01:03 | Outpatient (CLI) | payer MEDICAID, SELFPAY ==
--- NOTE | 2020-09-11 15:45 | DI.MRI_ITS ---
EXAM: MR LUMBAR SPINE WO CLINICAL HISTORY: LUMBAR RADICULOPATHY L5. TECHNIQUE: Multiplanar multisequence MRI of the Lumbar spine was performed. COMPARISON: MR MRI - LUMBAR SPINE WO CONTRAST from 09/22/[address] ABDOMEN PELVIS WO from 06/21/2020 FINDINGS: Five lumbar vertebrae are presumed. Conus medullaris is at normal level. There is no evidence of conus mass nor subjacent clumping of in trathecal nerve roots to suggest arachnoiditis. The distal thecal sac appears unremarkable.There is no evidence of Tarlov intrasacral cysts nor other significant findings within the sacral canal Bones:There are no fractures nor ominous osseous lesions in the lumbar vertebral bodies and visualize d sacrum. There are Modic type 1 sub endplate marrow changes at L3-4 level (see below) With respect to the individual levels... T12-L1: Unremarkable L1-2: Normal disc height and signal. No disc herniation nor central canal stenosis.No foraminal steno sis L2-3: Normal disc height. Mild annular bulging. No central canal stenosis. No significant foraminal stenosis. No facet arthropathy. L3-4: Mild-moderate disc space narrowing. Posterior bony ridging and Modic type 1 sub endplate marro w edema changes are needed noted on both sides of the disc space, more so posteriorly. There is broa d annular bulging at this level with flattening of the anterior thecal sac and mild-moderate central canal stenosis. There is mild bilateral vertical foraminal stenosis due to the disc height loss. Mi nimal facet degenerative changes. L4-5: Advanced disc height loss is evident at this level as well as Modic type 2 sub endplate fatty m arrow changes. Posteriorly there is diffuse annular bulging but central canal dimensions are lower n ormal. There is moderate foraminal stenosis on the right side and no foraminal stenosis on the left side. This is due to the more prominent disc height loss on the right side of this intervertebral di sc space when compared to the left side. In addition, there is degenerative change in the facets, mo re so on the right side and adding to the foraminal narrowing. L5-S1: Preserved disc height and signal. Mild annular bulging without a distinct disc herniation or central canal stenosis. Very mild anterolisthesis of L5 upon S1 approximately 1 millimeter. This re lated to degenerative changes in the facet joints. There are no pars defects. There is no central c anal stenosis but there is foraminal stenosis, right more so than left and due to degenerative overgr owth of the right facet joint, with less degenerative change in the left facet joint at this level. Soft tissues: paraspinal soft tissues appear unremarkable. IMPRESSION: 1. At L3-4 level there is broad annular bulging with mild-moderate central canal stenosis and Modic t ype 1 sub endplate marrow edema changes. Also mild bilateral vertical foraminal stenosis at this lev el. 2. At L4-5 level there is asymmetric right-sided foraminal stenosis. At L5-S1 level there is also as ymmetric right-sided foraminal stenosis as described above. DATA REPOSITORY:
== END 2020-09-11 01:04 ==
LOC: DI 01:08
PROVIDERS: PCP Nurse Practitioner Family; Visit Provider Nurse Practitioner Family
DX: M54.16 Radiculopathy, lumbar region (principal); M51.16 Intervertebral disc disorders with radiculopathy, lumbar region
CPT/HCPCS: 72148

== ENCOUNTER 2020-11-11 12:35 | Outpatient (CLI) | payer MEDICAID, SELFPAY ==
--- NOTE | 2020-11-11 06:00 | DI.RAD_ITS ---
EXAM: XR PAIN CLINIC LUMBAR SP 2V CLINICAL HISTORY: Dx: Lumbar Spondylosis TECHNIQUE: 2D and realtime digital imaging was performed. COMPARISON: No exams were available for comparison FINDINGS: C-arm fluoroscopy was utilized by Dr. Muñoz during reported lumbar radiofrequency ablation. Hard copies show needle placement bilaterally at what appear to be the L3-4, L4-5, and L5-S1 levels. IMPRESSION: RADIATION DOSE DELIVERED: graciela Freedman=18.7 mGy
[2020-11-11 12:49] VITALS: BP 150/90; PULSE 79; RESP 16; TEMP 37.2; O2SAT 96
--- NOTE | 2020-11-11 13:13 | PDOC.PAIN_ITS ---
Pain Clinic Procedure Note Procedure Note Procedure Note: Bilateral Lumbar Radiofrequency with Coolief Machine PROCEDURE NOTE Date of Service: November 11, 2020 Patient: GISEL TIJERINA Provider: Werner Muñoz MD Pre Operative Diagnosis: Lumbosacral spondylosis without myelopathy Post Operative Diagnosis: Same Comment: patient underwent this procedure on 04/[address] Freeman which provided significant pain relief lasting for several months before back pain gradually returned to baseline recently. He was able to have improved function after his radiofrequency ablation therapy. He is here for a repeat procedure today. PROCEDURE: Radiofrequency Ablation of medial branches - Bilateral L3 L4 L5 and the bilat eral S1 lateral branches GISEL TIJERINA was brought into the fluoroscopy suite and positioned into the prone position on the fluoroscopy table and allowed to adjust to a position of comfort. A grounding pad was placed on the left upper back. The lumbar region was widely prepped with a chloraprep solution, allowed to air dry and draped in standard sterile surgical fashion. Local anesthesia was provided by 20mL of 1% lidocaine delivered with a 25g needle. A 17g 100mm radiofrequency introducer needle was placed to the planned anatomic targets guided with intermittent fluoroscopy with a perpendicular approach to terminally place at the junction of the superior articular process and the transverse process of the bilateral L3, L4, L5 and the base of the sacral ala bilaterally for the L5 medial branch nerve and just above the bilateral S1 neuroforamin for the bilateral S1 lateral branches. The stylets were removed and radiofrequency probes with a 4mm active tip were then inserted. Needle tip position of the probes was verified in the AP, oblique, and lateral views. At each site, the medial branch nerve was stimulated at 2 Hz to a maximum 1-2 volts determined to finalize safe needle and electrode placement. The patient was awake and responsive during this portion of the procedure. Each target was anesthetized with 1 mL of 2% lidocaine for anesthesia for lesioning and then each target was lesioned at 80 degrees Celsius for 2 minutes and 30 seconds. Tissue impedences were noted to be between 250 and 500 Ohms. I injected 1/4cc of Depomedrol (40 mg/cc) and 1 cc of 0.5% Bupivacaine at each segmental nerve after the ablation. Electrodes and needles were then removed and bandages placed over the needle placement sites, the patient then returned to the supine position on a stretcher and transported to the recovery room without hemodynamic, neurologic, or allergic reactions. Fluoroscopic images were printed for hard copy recording and digitally archived. This procedure will result in the denervation of bilateral L4/5, L5/S1 facet joints, total of 4 facet joints. Follow up plans and appointments were discussed with the GISEL . Post procedure instruction was given as documented in nursing documentation and having met discharge criteria, GISEL was discharged from the [facility]. COMMENTS: No complications. Patient received 1mg of IV versed for this procedure. Pre-procedure pain level reported as 8/10 VAS score, and post- procedure pain level reported as 2/10 VAS. F/U with our office as needed. I personally performed this entire procedure. Werner Muñoz MD Pain Management
[2020-11-11] MEDS: Lactated Ringers 1,000 ML 80 ML IV (13:15)
[2020-11-11] MEDS: Midazolam 2 MG/2 ML VIAL IVP (13:38)
[2020-11-11] MEDS: Lidocaine 1% Pres-Free 30 ML VIAL IJ (14:01)
[2020-11-11] MEDS: Bupivacaine 0.5% Pres-Free 10 ML VIAL IJ (14:01)
[2020-11-11] MEDS: methylPREDNISolone ACETATE 40 MG/ML VIAL IJ (14:01)
[2020-11-11] MEDS: Lidocaine 2% Pres-Free 5 ML VIAL IJ (14:01)
[2020-11-11 14:07] VITALS: BP 152/91; PULSE 80; RESP 13; O2SAT 96
== END 2020-11-11 12:36 | disposition home or self-care (01) ==
LOC: PC 12:35
PROVIDERS: PCP Nurse Practitioner Family; Visit Provider Internal Medicine
DX: M47.817 Spondylosis without myelopathy or radiculopathy, lumbosacral region (principal)
CPT/HCPCS: 64635; 64636; 72100; J1030; J2250

== ENCOUNTER 2021-07-30 16:53 | Outpatient (REF) | payer MEDICAID, SELFPAY ==
[2021-08-01 10:19] LABS: COVID-19 RT-PCR UVMMC Result Negative (Negative)
== END 2021-07-30 16:54 | disposition home or self-care (01) ==
LOC: NCHCN 16:53
PROVIDERS: PCP Nurse Practitioner Family; Visit Provider Nurse Practitioner Family
DX: Z20.822 Contact with and (suspected) exposure to COVID-19 (principal); J06.9 Acute upper respiratory infection, unspecified
CPT/HCPCS: U0003

== ENCOUNTER 2021-09-01 17:15 | Outpatient (REF) | payer MEDICAID, SELFPAY ==
[2021-09-01 21:35] LABS: HCT 44.2 % (40.0-50.0); HGB 14.4 g/dL (13.5-17.5); MCH 31.7 pg (27.0-33.0); MCHC 32.6 % (32.0-36.0); MCV 97.4 fL (80-95); MPV 11.2 fL (8.0-11.0); Platelet Count 262 10^3/uL (130-400); RBC 4.54 10^6/uL (4.36-5.78); RDW-SD 43.6 fL; WBC 8.16 10^3/uL (4.4-10.8)
[2021-09-01 21:51] LABS: ALT 23 U/L (16-63); AST 25 U/L (15-37); Albumin 3.9 g/dL (3.4-5.0); Alkaline Phosphatase 90 U/L (46-116); Anion Gap 7.9 mmol/L (3-11); BUN 9 mg/dL (7-18); Bilirubin, Total 0.2 mg/dL (0.2-1.0); CO2 27.1 mmol/L (21.0-32.0); Calcium 9.1 mg/dL (8.5-10.1); Chloride 102 mmol/L (98-107); Glucose 82 mg/dL (74-106); Potassium 4.5 mmol/L (3.5-5.1); Sodium 137 mmol/L (136-145); Total Protein 6.8 g/dL (6.4-8.2)
[2021-09-02 21:44] LABS: PSA, Screening 0.4 ng/mL (0.0-3.5)
[2021-09-03 10:48] LABS: Hepatitis C Ab w Rflx HCV PCR Negative (Negative)
== END 2021-09-01 17:16 | disposition home or self-care (01) ==
LOC: NCHCN 17:15
PROVIDERS: PCP Nurse Practitioner Family; Visit Provider Nurse Practitioner Family
DX: F10.10 Alcohol abuse, uncomplicated (principal); R63.4 Abnormal weight loss; Z12.5 Encounter for screening for malignant neoplasm of prostate; Z11.59 Encounter for screening for other viral diseases
CPT/HCPCS: 80053; 84153; 85027; 86803

== ENCOUNTER 2022-09-08 16:22 | Outpatient (REF) | payer MEDICAID, SELFPAY ==
[2022-09-08 21:12] LABS: HCT 40.2 % (40.0-50.0); HGB 13.8 g/dL (13.5-17.5); MCH 31.5 pg (27.0-33.0); MCHC 34.3 % (32.0-36.0); MCV 92 fL (80-95); MPV 11.1 fL (8.0-11.0); Platelet Count 258 10^3/uL (130-400); RBC 4.38 10^6/uL (4.36-5.78); RDW 12.8 % (11.8-14.1); RDW-SD 42.7 fL; WBC 9.04 10^3/uL (4.4-10.8)
[2022-09-08 22:35] LABS: ALT 21 U/L (16-63); AST 24 U/L (15-37); Albumin 4.3 g/dL (3.4-5.0); Alkaline Phosphatase 85 U/L (46-116); Anion Gap 8.3 mmol/L (3-11); BUN 9 mg/dL (7-18); Bilirubin, Total 0.4 mg/dL (0.2-1.0); CO2 26.7 mmol/L (21.0-32.0); CREATININE 1.2 mg/dL (0.70-1.30); Chloride 100 mmol/L (98-107); Estimated GFR 69.66 (mL/min/1.73m2); Glucose 93 mg/dL (74-106); Potassium 4.2 mmol/L (3.5-5.1); Sodium 135 mmol/L (136-145); Total Protein 6.6 g/dL (6.4-8.2)
[2022-09-09 17:59] LABS: PSA, Screening 0.3 ng/mL (<=3.5)
== END 2022-09-08 16:23 | disposition home or self-care (01) ==
LOC: NCHCN 16:22
PROVIDERS: PCP Nurse Practitioner Family; Visit Provider Nurse Practitioner Family
DX: F10.10 Alcohol abuse, uncomplicated (principal); N52.9 Male erectile dysfunction, unspecified; R63.4 Abnormal weight loss; Z12.5 Encounter for screening for malignant neoplasm of prostate
CPT/HCPCS: 80053; 84153; 85027

== ENCOUNTER 2022-10-18 01:50 | Outpatient (CLI) | payer MEDICAID, SELFPAY ==
--- NOTE | 2022-10-18 | DI.CTLCSR_ITS ---
Exam(s) CT CHEST LUNG CANCER SCREEN EXAM: CT CHEST LUNG CANCER SCREEN CLINICAL HISTORY: TOBACCO USE Z72.0 TECHNIQUE: Imaging Protocol: Axial computed tomography images with coronal and sagittal reformatted images were created and reviewed. Low dose screening protocol. COMPARISON: CT CT CHEST LUNG CANCER SCREEN from 08/04/2020 FINDINGS: Tracheobronchial tree: No bronchiectasis or mucus plugging.. Mediastinum and Lenora: No dominant adenopathy or fluid collection. Pulmonary parenchyma: No consolidation or dominant measurable mass. Mild emphysematous changes. Lung Nodules: No suspicious pulmonary nodules. Stable a scattered 1-2 millimeter calcifications bila teral lower lobes, likely granulomas. Pleura: No effusion. No pneumothorax. Heart: The heart is not dilated. Mild coronary artery calcifications are seen. Aorta: Thoracic aorta non-dilated. Mild calcification. Upper abdomen: Unremarkable. Bones: Degenerative changes greatest in mid thoracic region. Soft Tissues: Unremarkable. IMPRESSION: No suspicious pulmonary nodules. Lung RADS Cat 2 - Benign Appearance / Behavior: Nodules with a very low likelihood of becoming a clin ically active cancer due to size or lack of growth Lung-RADS 1.0 CATEGORIES: Category 0 - Prior chest CT exam(s) being located for comparison. Category 1 - Annual screening in 12 months. No nodules or definitely benign nodules. Category 2 - Annual screening in 12 months. Benign appearance. Nodules with low likelihood of becomin g active cancer. Category 3 - 6-month follow-up. Probably benign. Short-term follow-up suggested. Nodules with low lik elihood of becoming active cancer. Category 4A - 3-month follow-up and CT/PET if >8 mm in size. Suspicious finding. Findings which requi re additional testing. Category 4B - Findings which require additional testing and tissue sampling. Category 4X - Category 3 or 4 nodules with additional features or imaging findings that increases the suspicion of malignancy. Modifier S- Potentially clinically significant findings (non lung cancer) RADIATION DOSE DELIVERED: 82.61mGy.cm Total DLP DATA REPOSITORY: All CT scans at this facility are submitted to the National Radiology Data Registry (NRDR) Dose Index Registry (DIR) with the [employer] (ACR). RADIATION OPTIMIZATION: All CT scans at this facility use at least one of these dose optimization te chniques: automated exposure control; mA and/or kV adjustment per patient size (includes targeted exa ms where dose is matched to clinical indication); or iterative reconstruction.
--- NOTE | 2022-10-18 | DI.CT_ITS ---
Exam(s) CT BRAIN CTA EXAM: CT BRAIN CTA CLINICAL HISTORY: FAM HX BRAIN ANEURYSM Z82.0. TECHNIQUE: Imaging Protocol: Axial CT angiography was performed with multi-slice acquisition and mu lti-planar and/or 3D reconstructions. CONTRAST MATERIAL: Intravenous: Omnipaque 350 Contrast volume:structured data in ml Intravenous: Omnipaque 350 Contrast volume:85 mL COMPARISON: CT CT ABDOMEN PELVIS WO from 06/21/2020 FINDINGS: CT Head W/O: Ventricles and Extra axial spaces: Normal in size and morphology for the patient's age. Hemorrhage: None. Cerebral parenchyma: Normal. Midline shift: None. Brainstem/Cerebellum: Normal. Calvarium: Normal. Visualized Paranasal sinuses/Mastoids: Opacification of the right frontal and a few ethmoid sinuses. Mucous retention in the floors of the maxillary sinuses. Mastoid air cells clear. Soft Tissues: Unremarkable. CTA Brain W: Internal Carotid Arteries: Petrous: Normal. Cavernous: Normal. Cerebral: Normal. Middle Cerebral Arteries: Right: No aneurysm, occlusion or significant stenosis. Left: No aneurysm, occlusion or significant stenosis. Anterior Cerebral Arteries: Right: No aneurysm, occlusion or significant stenosis. Left: No aneurysm, occlusion or significant stenosis. Posterior cerebral Arteries: Right: No aneurysm, occlusion or significant stenosis. Left: No aneurysm, occlusion or significant stenosis. Vertebral Arteries: Right: No aneurysm, occlusion or significant stenosis. Left: No aneurysm, occlusion or significant stenosis. Basilar Artery: No aneurysm, occlusion or significant stenosis. IMPRESSION: 1. Normal CTA examination of the [place]. 2. Unremarkable noncontrast CT Head. Sinus disease. RADIATION DOSE DELIVERED: 1,917.78mGy.cm Total DLP 1,917.78mGy.cm Total DLP 1,917.78mGy.cm Total DLP 1,917.78mGy.cm Total DLP 1,917.78mGy.cm Total DLP DATA REPOSITORY: All CT scans at this facility are submitted to the National Radiology Data Registry (NRDR) Dose Index Registry (DIR) with the [employer] (ACR). RADIATION OPTIMIZATION: All CT scans at this facility use at least one of these dose optimization te chniques: automated exposure control; mA and/or kV adjustment per patient size (includes targeted exa ms where dose is matched to clinical indication); or iterative reconstruction.
[2022-10-18 14:25] LABS: CREATININE 1.1 mg/dL (0.70-1.30); Estimated GFR 76.85 (mL/min/1.73m2)
[2022-10-18] MEDS: Omnipaque 350 MG/ML 100 ML BTL IJ (14:28)
[2022-10-18] MEDS: Normal Saline - Diluent 50 ML VIAL IJ (14:29)
== END 2022-10-18 02:10 ==
LOC: DI 01:50
PROVIDERS: PCP Nurse Practitioner Family; Visit Provider Nurse Practitioner Family
DX: Z01.812 Encounter for preprocedural laboratory examination (principal); Z82.0 Family history of epilepsy and other diseases of the nervous system; J32.8 Other chronic sinusitis; Z12.2 Encounter for screening for malignant neoplasm of respiratory organs; J43.8 Other emphysema; J98.4 Other disorders of lung
CPT/HCPCS: 70496; 71271; 82565; J3490

== ENCOUNTER → 2023-10-24 03:25 | Outpatient (CLI) | payer MEDICAID, SELFPAY ==
--- NOTE | 2023-10-24 | DI.CTLCSR_ITS ---
Exam(s) CT CHEST LUNG CANCER SCREEN EXAM: CT CHEST LUNG CANCER SCREEN CLINICAL HISTORY: TOBACCO USER Z72.0 SCREENING FOR LUNG CANCER TECHNIQUE: Imaging Protocol: Axial computed tomography images with coronal and sagittal reformatted images were created and reviewed COMPARISON: CT CT CHEST LUNG CANCER SCREEN from 10/18/2022 FINDINGS: Tracheobronchial tree: Patent where visualized. Pulmonary parenchyma: No consolidation or dominant measurable mass. Mild emphysematous changes are pr esent. Lung Nodules: None. Mediastinum and Lenora: No dominant adenopathy or fluid collection. The esophagus is unremarkable. Thyroid gland: Unremarkable. Lymph nodes: Unremarkable. Pleura: No effusion or pneumothorax. Heart: The heart is not dilated. Mild coronary artery calcification is present. No pericardial effus ion. Aorta: Thoracic aorta non-dilated.Atherosclerotic calcification is present. Upper abdomen: Unremarkable. Soft Tissues: Unremarkable. Bones: Within normal limits. IMPRESSION: No pulmonary nodules. Lung RADS Cat 1 - Negative: No nodules and definitely benign nodules Lung-RADS 1.0 CATEGORIES: Category 0 - Prior chest CT exam(s) being located for comparison. Category 1 - Annual screening in 12 months. No nodules or definitely benign nodules. Category 2 - Annual screening in 12 months. Benign appearance. Nodules with low likelihood of becomin g active cancer. Category 3 - 6-month follow-up. Probably benign. Short-term follow-up suggested. Nodules with low lik elihood of becoming active cancer. Category 4A - 3-month follow-up and CT/PET if >8 mm in size. Suspicious finding. Findings which requi re additional testing. Category 4B - Findings which require additional testing and tissue sampling. Suspicious finding. Category 4X - Category 3 or 4 nodules with additional features or imaging findings that increases the suspicion of malignancy. Modifier S- Potentially clinically significant finding. (Non lung cancer) RADIATION DOSE DELIVERED: Total DLP Total DLP DATA REPOSITORY: All CT scans at this facility are submitted to the National Radiology Data Registry (NRDR) Dose Index Registry (DIR) with the [employer] (ACR). RADIATION OPTIMIZATION: All CT scans at this facility use at least one of these dose optimization te chniques: automated exposure control; mA and/or kV adjustment per patient size (includes targeted exa ms where dose is matched to clinical indication); or iterative reconstruction.
== END ==
PROVIDERS: PCP Nurse Practitioner Family; Visit Provider Nurse Practitioner Family
DX: Z12.2 Encounter for screening for malignant neoplasm of respiratory organs (principal); J43.8 Other emphysema; Z72.0 Tobacco use
CPT/HCPCS: 71271

== ENCOUNTER 2024-05-16 10:34 | Outpatient (REF) | payer MEDICAID, SELFPAY ==
--- OUTSIDE RECORDS SUMMARY | 2024-05-16 10:35 | XMS_ITS | Continuity of Care Document ---
Author Organization [facility] Ambulatory Clinics Address [address] [place] [address] Care Team Providers Care Lime Slaker Name Role Phone CANDELARIA COUGHLIN Primary Care Physician Encounter [facility] FIN NBR [id number] Date(s): 12/17/22 - 12/17/22 [facility] Ambulatory Clinics [address] [place], [place] [address] Discharge Disposition: Home Allergies, Adverse Reactions, Alerts No Known Medication Allergies Assessment and Plan Future Scheduled Tests Radiology* MRI Spine Cervical w/o Contrast 12/16/22 * MRI Spine Lumbar w/o Contrast 12/16/22 * XR Spine Cervical 4 or 5 Views 12/16/22 * XR Spine Lumbosacral 4+ Views 12/16/22 Medications !-Flexeril 10 mg =, Oral, TID, 0 Refill(s) Start Date: 12/16/22 Status: Ordered gabapentin 800 mg =, TID RT, 0 Refill(s) Start Date: 12/16/22 Status: Ordered lansoprazole 30 mg =, Oral, Daily, 0 Refill(s) Start Date: 12/16/22 Status: Ordered naproxen 500 mg =, Oral, every 12 hr, 0 Refill(s) Start Date: 12/16/22 Status: Ordered Vitamin B1 100 mg =, Oral, Daily, 0 Refill(s) Start Date: 12/16/22 Status: Ordered Problem List Condition Confirmation Course Effective Dates Status H ealth Status Informant Cervical radiculopathy Confirmed Active Lumbar degenerative disc disease Confirmed Active Emmanuel's reflex positive Confirmed Active Balance problem Confirmed Active Spondylosis of lumbosacral spine with radiculopathy Confirmed Active Paresthesias Confirmed Active Lumbar spinal stenosis Confirmed Active Social History Social History Type Response Tobacco Current everyday tob acco user Tobacco Use:. 4 year(s). 1 Sex 1picked up smoking again after 6 years of not smoking. prior to that smoked since teenager years. Patient Care team information Care Team Personnel Name: CANDELARIA COUGHLIN Position: No Access Member Role: Primary Care Physician Address: Address: [address] Care Team Related Persons Name: CECY HANNA I Address: Home [address] [place] [id number] [facility]
--- OUTSIDE RECORDS SUMMARY | 2024-05-16 10:35 | XMS_ITS | Continuity of Care Document ---
Author Organization [facility] Ambulatory Clinics Address [address] [place] [address] Care Team Providers Care Supervisor Electronic Coils Name Role Phone CANDELARIA COUGHLIN Primary Care Physician [phone] Encounter [facility] FIN NBR [id number] Date(s): 12/16/22 - 12/16/22 [facility] Ambulatory Clinics [address] [place], [place] [address] Discharge Disposition: Home Allergies, Adverse Reactions, Alerts [...] Member Role: Primary Care Physician Address: Address: [address] [address]- Care Team Related Persons Name: CECY HANNA I Address: Home [address] [place] [phone] [facility] [place]
--- OUTSIDE RECORDS SUMMARY | 2024-05-16 10:35 | XMS_ITS | Continuity of Care Document ---
Author Organization [facility] Ambulatory Clinics Address [address] [place] [address] Care Team Providers Care Php Wordpress Developer Name Role Phone CANDELARIA COUGHLIN Primary Care Physician Encounter [facility] FIN NBR [id number] Date(s): 12/17/22 - 12/17/22 [facility] Ambulatory Clinics [address] [place], [place] [address] Discharge Disposition: Home Allergies, Adverse Reactions, [...] Member Role: Primary Care Physician Address: Address: [address] Care Team Related Persons Name: CECY HANNA I Address: Home [address] [place] [phone] [facility]
--- OUTSIDE RECORDS SUMMARY | 2024-05-16 10:36 | XMS_ITS | Encounter Summary ---
Author Organization [facility] Address [address] [place] [address] Care Team Providers Care Watch Band Assembler Name Role Phone Kathrin Sanchez MARKETING TRAFFIC COORDINATOR Primary Care Provider [phone] Encounter Details Date Type Department Care Team (Late st Contact Info) Description 07/31/2021 Lab Requisition [facility] Pathology & Laboratory Medicine - [address] [address] Outr Resulting Lab, Provider Social History Tobacco Use Types Packs/Day Years Used Date Smoking Tobacco: Never Assessed Interpersonal Safety Answer Date Record ed Physically Hurt Never 07/31/2020 Verbally Threaten Not on file 07/31/2020 Sex and Gender Information Value Date Recorded Sex Assigned at Not on file Gender Identity Male 10/12/2023 15:09 EDT Sexual Orientation Not on file documented as of this encounter Plan of Treatment Not on file documented as of this encounter Procedures Procedure Name Priority Date/Time Associated Diagnosis Comments ZZCOVID-19 TEST [facility] PCR Today 07/30/2021 15:40 EST COVID-19 TESTING Routine 07/30/2021 15:4 0 EST documented in this encounter Results * COVID-19 TEST [facility] PCR (07/30/2021 15:40 EST) Swab 07/30/2021 15:4 0 EST 07/31/2021 16:53 EST Provider Outr Resulting Lab MICROBIOLOGY - GENERAL ORDERABLES Performing Organization Address [facility] Co de Phone Number [facility] [address] [place] [address] * COVID-19 TESTING (07/30/2021 15:40 EST) COVID-19 rt-PCR Result Negative Negative 08/01/2021 10:13 EST [facility] Comment: This test has not been FDA cleared or approved. This test has been authorized by FDA under an EUA for use by authorized laboratories. This test has been authorized only for detection of nucleic acid from 2019-nCoV, not for any other viruses or pathogens. This test is only authorized for the duration of the declaration that circumstances exist justifying the authorization of emergency use of in vitro diagnostic tests for detection and/or diagnosis of 2019-nCoV under section 564(b)(1) of Act, 21 U.S.C ?? 360bbb-3(b) (1), unless the authorization is terminated or revoked sooner. Negative results do not preclude 2019-nCoV infection and should not be used as the sole basis for treatment or other patient management decisions. Negative results must be combined with clinical observations, patient history, and epidemiological information. Testing was performed using the linda SARS-CoV-2 assay ([employer] on the Linda 6800 System Performing Lab Linda [address] [facility] Lab 08/01/2021 10:13 EST [facility] Swab 07/30/2021 15:4 0 EST 07/31/2021 16:53 EST Provider Outr Resulting Lab MICROBIOLOGY - GENERAL ORDERABLES Performing Organization Address [facility]/ZIP Co de Phone Number [facility] [address] [place] [address] documented in this encounter Visit Diagnoses Not on filedocumented in this encounter Care Teams Watch Band Assembler Relationship Specialty Start Date End Date Kathrin Sanchez FNP [address] [place] [phone] PCP - General Family Medicine - Primary Care 10/12/23 documented as of this encounter
--- OUTSIDE RECORDS SUMMARY | 2024-05-16 10:36 | XMS_ITS | Encounter Summary ---
Author Organization [facility] [place] [address] Care Team Providers Care Solid Glass Rod Dowel Machine Operator Name Role Phone Kathrin Sanchez APRN Primary Care Provider [phone] Encounter Details Date Type Department Care Team (Late st Contact Info) Description 01/29/2020 Ancillary Procedure Radiology Library at [facility] [place] [place] [address] Kathrin Sanchez APRN [address] [place], [place] [address] Social History Tobacco Use Types Packs/Day Years Used Date Smoking Tobacco: Never Assessed Sex and Gender Information Value Date Recorded Sex Assigned at Not on file Gender Identity Not on file Sexual Orientation Not on file documented as of this encounter Plan of Treatment Not on file documented as of this encounter Procedures Procedure Name Priority Date/Time Associated Diagnosis Comments FILM LIBRARY STORAGE ONLY DX SPINE Routine 01/29/2020 12:00 AM EDT documented in this encounter Results * Film Library- Storage Only DX Spine (01/29/2020 12:00 AM EDT) Narrative [facility] - 08/05/2021 3:47 PM EST This exam is auto-finalizing. It's purpose is for storage only. Kathrin Sanchez APRN IMG FILM LIBRARY ORD ERABLES [place], [place] documented in this encounter Visit Diagnoses Not on filedocumented in this encounter Care Teams Solid Glass Rod Dowel Machine Operator Relationship Specialty Start Date End Date Kathrin Sanchez APRN [address] [place], [place] [address] PCP - General Family Medicine 11/29/19 documented as of this encounter
--- OUTSIDE RECORDS SUMMARY | 2024-05-16 10:36 | XMS_ITS | Encounter Summary ---
Author Organization [facility] Address [address] [place] [address] Care Team Providers Care Hospitalist Name Role Phone Kathrin Sanchez PRADEEP Primary Care Provider [phone] Encounter Details Date Type Department Care Team (Late st Contact Info) Description 07/31/2020 Lab Requisition [facility] Pathology & Laboratory Medicine - [address] [address] Outr Resulting Lab, Provider Social History Tobacco [...] Procedure Name Priority Date/Time Associated Diagnosis Comments PSA TOTAL, DIAGNOSTIC Routine 07/31/2020 10:15 EST documented in this encounter Results * PSA TOTAL, DIAGNOSTIC (07/31/2020 10:15 EST) PSA 0.4 0.0 - 3.5 ng/mL 07/31/2020 21:30 EST [facility] Blood VENOUS BLOOD / Unknown 07/31/2020 10:15 EST 07/31/2020 20:13 EST Narrative [facility] - 07/31/2020 21:30 EST NOTE: Serum PSA concentration should not be interpreted as absolute evidence for the presence or absence of malignant disease. Assayed on Siemens [employer] XPT using chemiluminescent technology.??Values obtained by using different assay methods cannot be used interchangeably. Provider Outr Resulting Lab CHEMISTRY & BLOOD GAS ORDERABLES [facility] [address] [place] [address] documented in this encounter Visit Diagnoses Not on filedocumented in this encounter Care Teams Hospitalist Relationship Specialty Start Date End Date Kathrin Sanchez FNP [address] [facility] [address] [place] [phone] PCP - General Family Medicine - Primary Care 10/12/23 documented as of this encounter
--- OUTSIDE RECORDS SUMMARY | 2024-05-16 10:36 | XMS_ITS | Encounter Summary ---
Author Organization [facility] [place] [address] Care Team Providers Care Press Service Reader Name Role Phone Kathrin Sanchez APRN Primary Care Provider Encounter Details Date Type Department Care Team (Late st Contact Info) Description 12/20/2019 Ancillary Procedure Radiology Library at [facility] [place] [address] Kathrin Sanchez APRN [address] [place], [place] [address] Social History Tobacco Use Types Packs/Day Years [...] FILM LIBRARY STORAGE ONLY DX SPINE Routine 12/20/2019 12:00 AM EDT documented in this encounter Results * Film Library- Storage Only DX Spine (12/20/2019 12:00 AM EDT) Narrative [facility] - 08/05/2021 3:49 PM EST This exam is auto-finalizing. It's purpose is for storage only. Kathrin Sanchez APRN IMG FILM LIBRARY ORD ERABLES [place], [place] documented in this encounter Visit Diagnoses Not on filedocumented in this encounter Care Teams Press Service Reader Relationship Specialty Start Date End Date Kathrin Sanchez APRN [address] [place], [place] [address] PCP - General Family Medicine 11/29/19 documented as of this encounter
--- OUTSIDE RECORDS SUMMARY | 2024-05-16 10:36 | XMS_ITS | Encounter Summary ---
Author Organization [facility] [place] [address] Care Team Providers Care Academic Counselor Name Role Phone Kathrin Sanchez APRN Primary Care Provider [phone] Encounter Details Date Type Department Care Team (Late st Contact Info) Description 03/18/2020 Ancillary Procedure Radiology Library at [facility] [place] [address] Kathrin Sanchez APRN [address] [place], [place] [address] Social History Tobacco Use Types Packs/Day Years [...] FILM LIBRARY STORAGE ONLY DX SPINE Routine 03/18/2020 12:00 AM EDT documented in this encounter Results * Film Library- Storage Only DX Spine (03/18/2020 12:00 AM EDT) Narrative [facility] - 08/05/2021 3:50 PM EST This exam is auto-finalizing. It's purpose is for storage only. Kathrin Sanchez APRN IMG FILM LIBRARY ORD ERABLES [place], [place] documented in this encounter Visit Diagnoses Not on filedocumented in this encounter Care Teams Academic Counselor Relationship Specialty Start Date End Date Kathrin Sanchez APRN [address] [place], [place] [address] PCP - General Family Medicine 11/29/19 documented as of this encounter
--- OUTSIDE RECORDS SUMMARY | 2024-05-16 10:36 | XMS_ITS | Encounter Summary ---
Author Organization [facility] [place] [address] Care Team Providers Care Finger Buffs Assembler Name Role Phone Kathrin Sanchez APRN Primary Care Provider [phone] Encounter Details Date Type Department Care Team (Late st Contact Info) Description 05/06/2020 Ancillary Procedure Radiology Library at [facility] [place] [address] Kathrin Sanchez APRN [address] [place], [place] [address] Social History Tobacco Use Types Packs/Day Years [...] FILM LIBRARY STORAGE ONLY DX SPINE Routine 05/06/2020 12:00 AM EDT documented in this encounter Results * Film Library- Storage Only DX Spine (05/06/2020 12:00 AM EDT) Narrative [facility] - 08/05/2021 3:52 PM EST This exam is auto-finalizing. It's purpose is for storage only. Kathrin Sanchez APRN IMG FILM LIBRARY ORD ERABLES [place], [place] documented in this encounter Visit Diagnoses Not on filedocumented in this encounter Care Teams Finger Buffs Assembler Relationship Specialty Start Date End Date Kathrin Sanchez APRN [address] [place], [place] [address] PCP - General Family Medicine 11/29/19 documented as of this encounter
--- OUTSIDE RECORDS SUMMARY | 2024-05-16 10:36 | XMS_ITS | Encounter Summary ---
Author Organization [facility] [place] [address] Care Team Providers Care Pipe Threader Name Role Phone Unavailable Primary Care Provider Unavailabl e Encounter Details Date Type Department Care Team (Latest Contact Info) Description 09/22/2017 - 09/22/2017 11:59 PM EST Hospital Encounter Radiology Library at [facility] [place] [address] Alec Tellez MD [facility] [place] [address] Discharge Disposition: Home Social History Tobacco Use Types Packs/Day Years [...] Associated Diagnosis Comments FILM LIBRARY STORAGE ONLY MR SPINE Routine 09/22/2017 12:00 AM EST documented in this encounter Results * Film Library- Storage Only MR Spine (09/22/2017 12:00 AM EST) Narrative [facility] - 10/20/2017 2:40 PM EDT This exam is for storage only and is auto-finalizing. Alec Tellez MD IMG FILM LIBRARY ORD ERABLES [facility] [place] documented in this encounter Visit Diagnoses Not on filedocumented in this encounter
--- OUTSIDE RECORDS SUMMARY | 2024-05-16 10:36 | XMS_ITS | Encounter Summary ---
Author Organization [facility] Address [address] [place] [address] Care Team Providers Care 3D Modeler Name Role Phone Kathrin Sanchez SLABBING MACHINE OPERATOR Primary Care Provider [phone] Reason for Visit * Reason Comments Pain Encounter Details Date Type Department Care Team (Late st Contact Info) Description 12/02/2023 14:00 EDT Office Visit [facility] Spine Program - [address] [address] Hayder Kasper MD [address] [facility] [place] [address] Low back pain radiating to right leg (Primary Dx) Social History Tobacco Use Types Packs/Day Years Used Date Smoking Tobacco: Every Day Cigarettes Smokeless Tobacco: Never Tobacco Cessation:Ready to Q uit: Not Asked; Counseling Given: Not Answered Interpersonal Safety Answer Date Record ed Physically Hurt Never 07/31/2020 Verbally Threaten Not on file 07/31/2020 Sex and Gender Information Value Date Recorded Sex Assigned at Not on file Gender Identity Male 10/12/2023 15:09 EDT Sexual Orientation Not on file documented as of this encounter Functional Status Functional Status Response Date of Assess ment Because of a physical, menta l, or emotional condition, does this person have difficulty doing errands alone such as visiting a doctor's office or shopping? Yes 10/20/2023 Cognitive Status Response Date of Assessm ent Because of a physical, menta l, or emotional condition, does this person have serious difficulty concentrating, remembering, or making decisions? No 10/20/2023 documented as of this encounter Progress Notes * Hayder Kasper MD - 12/02/2023 1400 EDT Problem: 1. 90% low back pain 10% right leg pain A. Degenerative scoliosis B. Foraminal stenosis 2. [id number] smoking history 3. Right knee OA Subjective: 63-year-old white male on SSI since 2018 for back pain. Smokes a pack of cigarettes a day. He notes that he has had low back pain for 30 years. His symptoms have waxed and waned but over the last year or 2 he is gotten more tired of them. He complains of right-sided lumbosacral pain andlow lumbar discomfort that will occasionally radiate into the right anterior thigh and right anterior calf. He notes its 90% back pain 10% leg symptoms. His symptoms are worsened by sitting and improved by constantly changing position and walking. He has been treated with gabapentin which is not helpful, Naprosyn has not been helpful. He did physical therapy many years ago and found it somewhat helpful and loosening him up. He is undergone epidural as well as medial branch blocks and RFA with no long-lasting improvement. He does not do a regular exercise program at this point in time Social history: Patient currently lives in [facility]. He is on SSI since 2018. He smokes a pack of cigarettes a day. 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 Objective: Cooperative gentleman is edentulous. He ambulates with a very antalgic gait on the rightsecondary to knee pain. He wears a knee brace on his right knee because of intra-articular discomfort. 5/5 EHL, tib ant, peroneal, gastroc, quad, ham, psoas. Negative straight leg raising. Flexion extension without discomfort. X-ray: Full AP and lateral demonstrated degenerative scoliosis. He is coronally and sagittally balanced. MRI: Demonstrates right-sided L4-5 and L5-S1 foraminal stenosis no evidence of any central stenosis Assessment: Gentleman with back pain as the predominant complaints which is consistent with his findings of multilevel degeneration and degenerative scoliosis. Discussed the nature of the symptoms and that he may hurt but he cannot hurt himself or cause damage. Discussed options including expectant management, ongoing exercise program for optimizing function with nonimpact aerobic conditioning and core stabilization. We also discussed has tried multiple injections with no ongoing relief and would be very unlikely to benefit from any further injections. We discussed the possibility of considering surgical intervention but discussed that would be an extensive undertaking and involve a fusion. Given his current symptom complex is unlikely to be of benefit and we would not perform fusion while he was still smoking. Given these parameters and the discussion with him he would like to pursue the following plan Plan: 1. Pool therapy 2 to 3 days a week 2. Core stabilization program for work at home 3. Patient has an e-bike he is getting fixed and will start riding 4. Celebrex trial 5. Discontinue gabapentin which she was instructed in 6. Follow-up as needed documented in this encounter Plan of Treatment Not on file documented as of this encounter Visit Diagnoses Diagnosis Low back pain radiating to right leg- Primary Lumbago documented in this encounter Care Teams 3D Modeler Relationship Specialty Start Date End Date Kathrin Sanchez FNP [address] [place] [phone] PCP - General Family Medicine - Primary Care 10/12/23 documented as of this encounter
--- OUTSIDE RECORDS SUMMARY | 2024-05-16 10:36 | XMS_ITS | Encounter Summary ---
Author Organization [facility] [place] [address] Care Team Providers Care Ambulatory Technologist Name Role Phone Kathrin Sanchez APRN Primary Care Provider Encounter Details Date Type Department Care Team (Late st Contact Info) Description 11/11/2020 Ancillary Procedure Radiology Library at [facility] [place] [phone] Kathrin Sanchez APRN [address] [place], [place] [id number] Social History Tobacco Use Types Packs/Day Years [...] FILM LIBRARY STORAGE ONLY DX SPINE Routine 11/11/2020 12:00 AM EDT documented in this encounter Results * Film Library- Storage Only DX Spine (11/11/2020 12:00 AM EDT) Narrative [facility] - 08/05/2021 3:55 PM EST This exam is auto-finalizing. It's purpose is for storage only. Kathrin Sanchez APRN [facility] [place] documented in this encounter Visit Diagnoses Not on filedocumented in this encounter Care Teams Ambulatory Technologist Relationship Specialty Start Date End Date Kathrin Sanchez APRN [address] [place], [place] [phone] PCP - General Family Medicine 11/29/19 documented as of this encounter
--- OUTSIDE RECORDS SUMMARY | 2024-05-16 10:36 | XMS_ITS | Encounter Summary ---
Author Organization [facility] [place] [address] Care Team Providers Care Academic Success Coordinator Name Role Phone Caity Kulkarni APRN Primary Care Provider + Encounter Details Date Type Department Care Team (Late st Contact Info) Description 03/31/2018 Ancillary Procedure Radiology Library at [facility] [place] [phone] Caity Kulkarni APRN [address] [place], [place] [address] Social History Tobacco Use Types Packs/Day Years [...] FILM LIBRARY STORAGE ONLY DX SPINE Routine 03/31/2018 12:00 AM EDT documented in this encounter Results * Film Library- Storage Only DX Spine (03/31/2018 12:00 AM EDT) Narrative [facility] - 11/28/2019 9:03 PM EDT This exam is auto-finalizing. It's purpose is for storage only. Caity Kulkarni APRN IMG FILM LIBRARY ORDERABLES [place], [place] documented in this encounter Visit Diagnoses Not on filedocumented in this encounter Care Teams Academic Success Coordinator Relationship Specialty Start Date End Date Caity Kulkarni APRN [address] [place], [place] [address] PCP - General Family Medicine 10/12/17 11/28/19 documented as of this encounter
--- OUTSIDE RECORDS SUMMARY | 2024-05-16 10:36 | XMS_ITS | Encounter Summary ---
Author Organization [facility] Address [address] [place] [address] Care Team Providers Care Hand Paster Name Role Phone Kathrin Sanchez PRADEEP Primary Care Provider [phone] Reason for Referral * PT/OT/ST (Routine/Next Available) - Closed Specialty Diagnoses / Procedures [facility] To Contact Diagnoses Back pain, unspecified back location, unspecified back pain laterality, unspecified chronicity Hayder Kasper MD [address] [place] [phone] Referral ID Status Reason Start Date Expiration Date V isits Requested Visits Authorized [id number] Closed Specialty Services Required 12/02/2023 1 1 Question Answer Reason for Request: Low back and leg pain Comments Evaluate and Treat Aquatic based therapy All treatment and modalities as tolerated Encounter Details Date Type Department Care Team (Late st Contact Info) Description 12/02/2023 Orders Only [facility] Spine Program - [address] [place] [address] Hayder Kasper MD [address] [place] [phone] Back pain, unspecified back location, unspecified back pain laterality, unspecified chronicity (Primary Dx) Social History Tobacco Use Types Packs/Day Years Used Date Smoking Tobacco: Every Day Cigarettes Smokeless Tobacco: Never Interpersonal Safety Answer Date Record ed Physically [...] No 10/20/2023 documented as of this encounter Ordered Prescriptions Prescription Sig Dispensed Refills Start Date End Da te celecoxib (CELEBREX) 200 mg capsule Take 1 Capsule by mouth daily. 30 Capsule 12/02/2023 01/03/2024 documented in this encounter Plan of Treatment Scheduled Referrals Name Type Priority Associated Diagnoses Order Schedule AMB CONS/FOLLOW UP PHYSICAL THERAPY - OUTSIDE OF NETWORK Outpatient Referral Routine/Next Available Back pain, unspecified back location, unspecified back pain laterality, unspecified chronicity Expected: 12/09/2023 (Approximate), Expires: 12/01/2024 documented as of this encounter Visit Diagnoses Diagnosis Back pain, unspecified back location, unspecified back pain laterality, unspecified chronicity- Primary documented in this encounter Care Teams Hand Paster Relationship Specialty Start Date End Date Kathrin Sanchez FNP [address] [place] [address] [address] [place] [phone] PCP - General Family Medicine - Primary Care 10/12/23 documented as of this encounter
--- OUTSIDE RECORDS SUMMARY | 2024-05-16 10:36 | XMS_ITS | Encounter Summary ---
Author Organization [facility] [place] [address] Care Team Providers Care Creative Assistant Name Role Phone Catiy Kulkarni APRN Primary Care Provider + Encounter Details Date Type Department Care Team (Late st Contact Info) Description 12/20/2017 Ancillary Procedure Radiology Library at [facility] [place] [phone] Caity Kulkarni APRN [address] [place], [place] [address] Social History Tobacco Use Types Packs/Day Years [...] FILM LIBRARY STORAGE ONLY DX SPINE Routine 12/20/2017 12:00 AM EDT documented in this encounter Results * Film Library- Storage Only DX Spine (12/20/2017 12:00 AM EDT) Narrative [facility] - 11/28/2019 9:02 PM EDT This exam is auto-finalizing. It's purpose is for storage only. Caity Kulkarni APRN IMG FILM LIBRARY ORDERABLES [place], [place] documented in this encounter Visit Diagnoses Not on filedocumented in this encounter Care Teams Creative Assistant Relationship Specialty Start Date End Date Caity Kulkarni APRN [address] [place], [place] [phone] PCP - General Family Medicine 10/12/17 11/28/19 documented as of this encounter
--- OUTSIDE RECORDS SUMMARY | 2024-05-16 10:36 | XMS_ITS | Continuity of Care Document ---
Author Organization [facility] Ambulatory Clinics Address [address] [place] [address] Care Team Providers Care Center Machine Set Up Operator Name Role Phone CANDELARIA COUGHLIN Primary Care Physician [phone] Encounter [facility] NBR [id number] Date(s): 12/16/22 - 12/16/22 [facility] Ambulatory Clinics [address], [place] [address] Encounter Diagnosis Spondylosis of lumbosacral spine with radiculopathy(Discharge Diagnosis) - 12/16/22 Lumbar degenerative disc disease(Discharge Diagnosis) - 12/16/22 Cervical radiculopathy(Discharge Diagnosis) - 12/16/22 Emmanuel's reflex positive(Discharge Diagnosis) - 12/16/22 Balance problem(Discharge Diagnosis) - 12/16/22 Lumbar spinal stenosis(Discharge Diagnosis) - 12/16/22 Paresthesias(Discharge Diagnosis) - 12/16/22 Discharge Disposition: Home or Self Care Attending Physician: JORDY Escoto Referring Physician: CANDELARIA COUGHLIN Allergies, Adverse Reactions, Alerts No Known Medication Allergies Assessment and Plan Future Scheduled Tests Radiology* MRI Spine Cervical w/o Contrast 12/16/22 * MRI Spine Lumbar w/o Contrast 12/16/22 * XR Spine Cervical 4 or 5 Views 12/16/22 * XR Spine Lumbosacral 4+ Views 12/16/22 Functional Status 12/16/22 Family Member Travel History No recent t ravel Recent Travel History No recent travel Other exposure to Infectious Disease Non e Medications !-Flexeril 10 mg =, Oral, TID, [...] Confirmed Active Lumbar spinal stenosis Confirmed Active Vital Signs Most recent to oldest [Reference Range]: 1 Temperature Temporal Artery [36-38 Deg C ] 35.9 Deg C *LOW* (12/16/22 2:18 PM) Peripheral Pulse Rate [60-100 bpm] 65 bp m (12/16/22 2:18 PM) Respiratory Rate [12-24 br/min] 18 br/mi n (12/16/22 2:18 PM) Blood Pressure [90-140/60-90 mmHg] 110/7 0mmHg (12/16/22 2:18 PM) Weight 72.8 kg (12/16/22 2:18 PM) Weight Measured (lbs) 160.496 lb (12/16/22 2:18 PM) [place] Body Weight Calculated 69.287 kg (12/16/22 2:18 PM) Height 173.7 cm (12/16/22 2:18 PM) Height/Length Measured (inches) 68.39 in ch (12/16/22 2:18 PM) BSA Measured 1.87 m2 (12/16/22 2:18 PM) Body Mass Index 24.13 kg/m2 (12/16/22 2:18 PM) Social History Social History Type Response Tobacco Current everyday tob acco user Tobacco Use:. 4 year(s). 1 Sex 1picked up smoking again after 6 years of not smoking. prior to that smoked since teenager years. Physician Outpatient Note * Moon Guzman APRN-PRADEEP: PERFORM Event Display: Office Clinic Note Physician Authored Date: [id number] GISEL TIJERINA :1960 Age:62 years Sex:Male Visit Date:12/16/2022 Primary Care Physician: CANDELARIA COUGHLIN Chief Complaint Lower back pain Additional Information patient states he has 4 degenarated disks, and the 2 on the R side is pinching a nerve. no imaging since 2018 History of Present Illness The patient presents to the spine center for evaluation of his low back and right leg pain.?? He reports that he has had back issues since his early 20s when he had a work injury. ??He states that initially he got a chiropractor and that helped somewhat but he went to live with the pain.?? He states that is progressively gotten worse and in 2018 and became so bad that he pursued treatment. ??He states that he had an MRI and ended up having multiple injections.?? His pain is in the mid??low backand then radiates into the right low back and buttock. ??The pain will then radiate around and downhis lateral thigh and cross over at the knee and down the front of the leg to his foot. ??He has numbness and tingling in this distribution as well.?? He states that more recently has also developed shooting pain that will wrap from the right low back into his right groin area. ??He denies any saddle anesthesia, urinary or bowel??incontinence or retention.?? Recently he has had some spasms in theleft low back as well.?? He also states that his??left middle toe??is numb.?? He feels that his right leg is weak. ??He states that he also had??a previous injury of the right lower leg that requiredsurgery and there is signs of surgery his right knee will give out and become weak on him. ??He wears a brace for this.?? In regards to his pain,??this is particularly bothersome with sitting, being in any position for prolonged.?? And sleeping is quite difficult. ??He states that he squats down this will actually help relieve some of his right- sided back pain.?? Sometimes walking is particular bothersome and he can only walk a few steps at a time and other times walking seems to help with his p ain.?? He is taking Flexeril and??gabapentin??which does provide a little bit of relief in his pain. ??He recently did a short course of prednisone which helped some but his pain has since worsened.?? He can no longer take ibuprofen due to gastrointestinal issues.?? He has seen a chiropractor in the past including a TENS unit??which was not helpful. ??He has done physical therapy as well which unfortunately was not helpful.?? More recently he has done injections at the??pain clinic at [facility]. ??He states that he has had multiple injections??as well as 2 rounds of RFL with??short period of relief in his symptoms. ??Unfortunately this last round of RFL only provided relief for??1 week and then the symptoms returned. The patient??also experiences??pain in the posterior neck that radiates to both of his shoulders. ??He states that he has a crepitus feeling in his right shoulder with movement. ??He also has intermittent pain that radiates down the right arm. ??This happens most frequently on the right but occasionally in the left arm. ??He states that he also has numbness affecting??both of his hands, primarilythe third and fourth digits.?? He states that occasionally he does find that he drops things unintentionally. ??Otherwise he denies any weakness of the upper extremities.?? He has noticed recently that his balance has gotten worse and that he has been walking a bit??oddly.?? He has not had any falls. Review of Systems Relevant ROS discussed in HPI Physical Exam Vitals & Measurements T:??35.9?C ??(Temporal Artery)?? HR:??65??(Peripheral)?? RR:??18?? BP:??110/70?? SpO2:??98%?? HT:??173.7??cm?? WT:??72.8??kg?? BMI:??24.13?? BSA:??1.87?? GENERAL:?General Appearance:?pleasant, age appropriate in no apparent distress.?? MUSCULOSKELETAL:?Musculoskeletal:??No lumbar spine,??lumbar paraspinal muscle or bilateral greater trochanteric bursa tenderness.?Mild tenderness over the right SI joint. ??Full range of motion of bilateral hips. NEUROLOGICAL:?Neurological:??Mildly positive straight leg on the right.?? The patient is able to balance??on the left foot for??over 3 seconds, he had difficulty balancing on the right foot but was able to??balance for??about 1 to 2 seconds??while lightly holding onto the exam table. ?Motor:?Strength 5/5 with bilateral deltoid abduction, biceps flexion, triceps flexion, wrist extension, hand abduction,??hip flexion, knee flexion and extension, ankle dorsiflexion and plantar flexion.?Reflexes:?2+ and symmetric in biceps, triceps, brachioradialis??and ankles bilaterally.?3+ bilateral knee jerks. ??Positive Santa's bilaterally. ? Tone: normal? Gait:??Antalgic favoring the right leg. Assessment/Plan 1.??Spondylosis of lumbosacral spine with radiculopathy??M47.27 ?? 2.??Lumbar degenerative disc disease??M51.36 Ordered: MRI Spine Lumbar w/o Contrast, 12/16/22, Routine, Reason: lumbar radiculopathy, lumbar stenosis, No, No, To be done at [facility], Transport Mode: Ambulatory, Lumbar degenerative disc disease Lumbar spinal stenosis Paresthesias XR Spine Lumbosacral 4+ Views, 12/16/22, Routine, Reason: Lumbar spondylosis, AP/Lat and FLEXION/EXTENSION. To be done at [facility]., Transport Mode: Ambulatory, Lumbar degenerative disc disease Lumbar spinal stenosis Paresthesias ?? 3.??Cervical radiculopathy??M54.12 Ordered: MRI Spine Cervical w/o Contrast, 12/16/22, Routine, Reason: Positive Emmanuel's reflex, cervical radiculopathy, paresthesias, balance problem, No, No, To be done at [facility], Transport Mode: Ambulatory, Cervical radiculopathy Balance problem Emmanuel's reflex positive Paresthesias XR Spine Cervical 4 or 5 Views, 12/16/22, Routine, Reason: cervical radiculopathy, AP/Lat and FLEXION/EXTENSION. To be done at [facility], Transport Mode: Ambulatory, Cervical radiculopathy Emmanuel's reflex positive Balance problem Paresthesias ?? 4.??Emmanuel's reflex positive??R29.2 Ordered: MRI Spine Cervical w/o Contrast, 12/16/22, Routine, Reason: Positive Emmanuel's reflex, cervical radiculopathy, paresthesias, balance problem, No, No, To be done at [facility], Transport Mode: Ambulatory, Cervical radiculopathy Balance problem Emmanuel's reflex positive Paresthesias XR Spine Cervical 4 or 5 Views, 12/16/22, Routine, Reason: cervical radiculopathy, AP/Lat and FLEXION/EXTENSION. To be done at [facility], Transport Mode: Ambulatory, Cervical radiculopathy Emmanuel's reflex positive Balance problem Paresthesias ?? 5.??Balance problem??R26.89 Ordered: MRI Spine Cervical w/o Contrast, 12/16/22, Routine, Reason: Positive Emmanuel's reflex, cervical radiculopathy, paresthesias, balance problem, No, No, To be done at [facility], Transport Mode: Ambulatory, Cervical radiculopathy Balance problem Emmanuel's reflex positive Paresthesias XR Spine Cervical 4 or 5 Views, 12/16/22, Routine, Reason: cervical radiculopathy, AP/Lat and FLEXION/EXTENSION. To be done at [facility], Transport Mode: Ambulatory, Cervical radiculopathy Emmanuel's reflex positive Balance problem Paresthesias ?? 6.??Lumbar spinal stenosis??M48.061 Ordered: MRI Spine Lumbar w/o Contrast, 12/16/22, Routine, Reason: lumbar radiculopathy, lumbar stenosis, No, No, To be done at [facility], Transport Mode: Ambulatory, Lumbar degenerative disc disease Lumbar spinal stenosis Paresthesias XR Spine Lumbosacral 4+ Views, 12/16/22, Routine, Reason: Lumbar spondylosis, AP/Lat and FLEXION/EXTENSION. To be done at [facility]., Transport Mode: Ambulatory, Lumbar degenerative disc disease Lumbar spinal stenosis Paresthesias ?? 7.??Paresthesias??R20.2 Ordered: MRI Spine Cervical w/o Contrast, 12/16/22, Routine, Reason: Positive Emmanuel's reflex, cervical radiculopathy, paresthesias, balance problem, No, No, To be done at [facility], Transport Mode: Ambulatory, Cervical radiculopathy Balance problem Emmanuel's reflex positive Paresthesias MRI Spine Lumbar w/o Contrast, 12/16/22, Routine, Reason: lumbar radiculopathy, lumbar stenosis, No, No, To be done at [facility], Transport Mode: Ambulatory, Lumbar degenerative disc disease Lumbar spinal stenosis Paresthesias XR Spine Cervical 4 or 5 Views, 12/16/22, Routine, Reason: cervical radiculopathy, AP/Lat and FLEXION/EXTENSION. To be done at [facility], Transport Mode: Ambulatory, Cervical radiculopathy Emmanuel's reflex positive Balance problem Paresthesias XR Spine Lumbosacral 4+ Views, 12/16/22, Routine, Reason: Lumbar spondylosis, AP/Lat and FLEXION/EXTENSION. To be done at [facility]., Transport Mode: Ambulatory, Lumbar degenerative disc disease Lumbar spinal stenosis Paresthesias ?? The patient has been struggling with many years of persistent low back pain. ??His pain is primarily in the right low back and down the right leg.?? He also experiences paresthesias in this distribution and subjective weakness. ??The patient has tried extensive conservative treatments including many medications, therapy and multiple lumbar spine injections with no lasting relief.?? The patient's MRI of the lumbar spine from??2020 showed multilevel??degenerative and spondylotic changes with??moderate to severe neuroforaminal narrowing at L4-5 and L5-S1 on the right. ??He also had mild stenosisat the L3-4 level at that time.?? I recommended obtaining??new imaging??including AP and lateral and flexion-extension lumbar spine x-rays as well as??MRI of the lumbar spine without contrast. ??He is agreeable. On the patient's physical examination he did have??a positive Emmanuel's reflex bilaterally as well as hyperreflexic knee jerks bilaterally.?? His??bilateral ankle jerks were normal which??is somewhatunexpected given his age as well as his lumbar spine problems.?? He does have??neck pain and intermittent pain rating down the arms as well as paresthesias of hands. ??He also feels that his balance and gait have been worsening.?? At this point his low back and leg problem is much more bothersome than the neck problem. ??However, the??positive Emmanuel's reflex is quite concerning and is most often a??pathologic reflex??suggesting??significant cervical spinal cord??compression.?? I recommended obtaining cervical spine imaging including AP and lateral flexion- extension cervical spine x-rays as well as an MRI of the cervical spine without contrast and the patient is agreeable. Plan: AP and lateral flexion-extension lumbar spine and cervical spine x-rays. MRI cervical and lumbar spines without contrast to be done at [facility]. Future Orders MRI Spine Cervical w/o Contrast, 12/16/22, Routine, Reason: Positive Emmanuel's reflex, cervical radiculopathy, paresthesias, balance problem, No, No, To be done at [facility], Transport Mode: Ambulatory, Cervical radiculopathy Balance problem Emmanuel's reflex positive Paresthesias MRI Spine Lumbar w/o Contrast, 12/16/22, Routine, Reason: lumbar radiculopathy, lumbar stenosis, No, No, To be done at [facility], Transport Mode: Ambulatory, Lumbar degenerative disc disease Lumbar spinal stenosis Paresthesias XR Spine Cervical 4 or 5 Views, 12/16/22, Routine, Reason: cervical radiculopathy, AP/Lat and FLEXION/EXTENSION. To be done at [facility], Transport Mode: Ambulatory, Cervical radiculopathy Emmanuel's reflex positive Balance problem Paresthesias XR Spine Lumbosacral 4+ Views, 12/16/22, Routine, Reason: Lumbar spondylosis, AP/Lat and FLEXION/EXTENSION. To be done at [facility]., Transport Mode: Ambulatory, Lumbar degenerative disc disease Lumbar spinal stenosis Paresthesias Problem List/Past Medical History Ongoing Balance problem Cervical radiculopathy Emmanuel's reflex positive Lumbar degenerative disc disease Lumbar spinal stenosis Paresthesias Spondylosis of lumbosacral spine with radiculopathy Historical No qualifying data Medications !-Flexeril, 10 mg, Oral, TID gabapentin, 800 mg, TID RT lansoprazole, 30 mg, Oral, Daily naproxen, 500 mg, Oral, every 12 hr Vitamin B1, 100 mg, Oral, Daily Allergies No Known Medication Allergies Social History Electronic Cigarette/Vaping Electronic Cigarette Use: Never. Tobacco Current everyday tobacco user Tobacco Use:. 4 year(s).- Comments: picked up smoking again after 6 years of not smoking. prior to that smoked since teenager years. Diagnostic Results Diagnostic Study Interpretation: MRI of the lumbar spine from 2020 was reviewed with patient.?There??was a levoscoliosis.?There??was disc degeneration at the L3-4 and L4-5 levels. ??There were Modic??endplate changes at the L3-4 level.?? At??L5-S1??there was a diffuse disc bulge??with bilateral facet hypertrophy??causing bilateral neuroforaminal narrowing??that was??moderate on the right and mild on the left.?? At L4-5 there was a??disc bulge??and bilateral facet??hypertrophy??causing??moderate to severe right??neuroforaminal narrowing.?? At L3-4??there was a mild diffuse disc bulge and bilateral facet??hypertrophy causing mild central and bilateral lateral recess stenosis. Electronically Signed on 12/16/22 03:42 PM JORDY Escoto Patient Care team information Care Team Personnel Name: CANDELARIA COUGHLIN Position: No Access Member Role: Primary Care Physician Address: Address: [address] [address]- Care Team Related Persons Name: CECY HANNA I Address: Home [address] [place] [phone] [facility]
--- OUTSIDE RECORDS SUMMARY | 2024-05-16 10:36 | XMS_ITS | Encounter Summary ---
Author Organization [facility] Address [address] [place] [address] Care Team Providers Care School Treasurer Name Role Phone Kathrin Sanchez PRADEEP Primary Care Provider [phone] Reason for Visit * Reason Onset Date Comments Back Pain 10/19/2023 Encounter Details Date Type Department Care Team (Late st Contact Info) Description 10/19/2023 Orders Only [facility] Spine Program - [address] [place] [address] Snehal Wilkinson PA-C [address] [facility] [place] [address] Low back pain, unspecified back pain laterality, unspecified chronicity, unspecified whether sciatica present (Primary Dx) Social History Tobacco Use Types [...] Procedure Name Priority Date/Time Associated Diagnosis Comments XR ENTIRE SPINE 2-3 VIEWS Routine 10/20/2023 14:14 EDT Low back pain, unspecified back pain laterality, unspecified chronicity, unspecified whether sciatica present documented in this encounter Results * XR ENTIRE SPINE 2-3 VIEWS (10/20/2023 14:14 EDT) Anatomical Region Laterality Modality Spine Computed Radiogr aphy 10/24/2023 12:3 1 EDT Impressions 10/24/2023 12:31 EDT Findings/Impression: There is slight dextrocurvature of the midthoracic spine, levocurvature at the thoracolumbar junction, and dextrocurvature of the lumbar spine. Slight exaggeration of the thoracic kyphosis. There is straightening of the normal lumbar lordosis at the upper lumbar levels. No significant spondylolisthesis on the lateral view. Vertebral body heights are normal. Multilevel disc height loss in the lower cervical spine, mid thoracic spine, and lower lumbar spine. Facet arthropathy in the lower lumbar spine. The bones appear diffusely demineralized. Atherosclerotic calcifications of the abdominal aorta are present. [id number] Narrative 10/24/2023 12:31 EDT XR ENTIRE SPINE 2-3 VIEWS ??10/20/2023 2:07 PM Clinical History/Comments: back pain;M54.50:Low back pain, unspecified back pain laterality, unspecified chronicity, unspecified whether sciatica present. Technique: AP and lateral views of the entire spine Comparison: Lumbar MRI September 11, 2020. Procedure Note Christopher Green MD - 10/24/2023 XR ENTIRE SPINE 2-3 VIEWS 10/20/2023 2:07 PM Clinical History/Comments: back pain;M54.50:Low back pain, unspecified back pain laterality,unspecified chronicity, unspecified whether sciatica present. Technique: AP and lateral views of the entire spine Comparison: Lumbar MRI September 11, 2020. IMPRESSION Findings/Impression: There is slight dextrocurvature of the midthoracic spine, levocurvature atthe thoracolumbar junction, and dextrocurvature of the lumbar spine.Slight exaggeration of the thoracic kyphosis. There is straightening ofthe normal lumbar lordosis at the upper lumbar levels. No significantspondylolisthesis on the lateral view. Vertebral body heights are normal.Multilevel disc height loss in the lower cervical spine, mid thoracicspine, and lower lumbar spine. Facet arthropathy in the lower lumbarspine. The bones appear diffusely demineralized. Atheroscleroticcalcifications of the abdominal aorta are present. [id number] Snehal Wilkinson PA-C [facility] documented in this encounter Visit Diagnoses Diagnosis Low back pain, unspecified back pain laterality, unspecified chronicity, unspecified whether sciatica present- Primary documented in this encounter Care Teams School Treasurer Relationship Specialty Start Date End Date Kathrin Sanchez FNP [address] [place] [phone] PCP - General Family Medicine - Primary Care 10/12/23 documented as of this encounter
--- OUTSIDE RECORDS SUMMARY | 2024-05-16 10:36 | XMS_ITS | Encounter Summary ---
Author Organization [facility] Address [address] [place] [address] Care Team Providers Care Supervisor Powdered Metal Name Role Phone Kathrin Sanchez PRADEEP Primary Care Provider [phone] Encounter Details Date Type Department Care Team (Late st Contact Info) Description 09/09/2022 Lab Requisition [facility] Pathology & Laboratory Medicine - [address] [address] Outr Resulting Lab, Provider Social History Tobacco [...] Associated Diagnosis Comments PSA TOTAL, DIAGNOSTIC Routine 09/08/2022 15:10 EST documented in this encounter Results * PSA TOTAL, DIAGNOSTIC (09/08/2022 15:10 EST) PSA 0.3 <=3.5 ng/mL 09/09/2022 17:55 EST [facility] Blood VENOUS BLOOD / Unknown 09/08/2022 15:10 EST 09/09/2022 16:51 EST Narrative [facility] - 09/09/2022 17:55 EST NOTE: Serum PSA concentration should not be interpreted as absolute evidence for the presence or absence of malignant disease. Assayed on Siemens ADVIA Talk[employer] XPT using chemiluminescent technology.??Values obtained by using different assay methods cannot be used interchangeably. Provider Outr Resulting Lab CHEMISTRY & BLOOD GAS ORDERABLES [facility] [address] [place] [address] documented in this encounter Visit Diagnoses Not on filedocumented in this encounter Care Teams Supervisor Powdered Metal Relationship Specialty Start Date End Date Kathrin Sanchez FNP [address] [facility] [address] [place] [phone] PCP - General Family Medicine - Primary Care 10/12/23 documented as of this encounter
--- OUTSIDE RECORDS SUMMARY | 2024-05-16 10:36 | XMS_ITS | Encounter Summary ---
Author Organization [facility] [place] [address] Care Team Providers Care Environmental Sustainability Manager Name Role Phone Caity Kulkarni APRN Primary Care Provider + Encounter Details Date Type Department Care Team (Late st Contact Info) Description 11/15/2017 Ancillary Procedure Radiology [facility] at [facility] [place] [phone] Caity Kulkarni APRN [address] [place], [place] [address] Social History Tobacco Use Types Packs/Day Years [...] Diagnosis Comments FILM LIBRARY STORAGE ONLY DX SHOULDER Routine 11/15/2017 12:00 AM EDT documented in this encounter Results * Film Library- Storage Only DX Shoulder (11/15/2017 12:00 AM EDT) Narrative [facility] [place] - 03/28/2019 3:15 PM EDT This exam is auto-finalizing. It's purpose is for storage only. Caity Kulkarni APRN IMG FILM LIBRARY ORDERABLES [place], [place] documented in this encounter Visit Diagnoses Not on filedocumented in this encounter Care Teams Environmental Sustainability Manager Relationship Specialty Start Date End Date Caity Kulkarni APRN [address] [place], [place] [address] PCP - General Family Medicine 10/12/17 11/28/19 documented as of this encounter
--- OUTSIDE RECORDS SUMMARY | 2024-05-16 10:36 | XMS_ITS | Encounter Summary ---
Author Organization [facility] Address [address] [place] [address] Care Team Providers Care Grinder Operator External Tool Name Role Phone Kathrin Sanchez PRADEEP Primary Care Provider [phone] Reason for Visit * Reason Comments Medications Refill Encounter Details Date Type Department Care Team (Late st Contact Info) Description 01/03/2024 Refill [facility] Spine Program - [address] [place] [address] Hayder Kasper MD [address] [place] [address] [place] [address] Medications Refill Social History Tobacco Use Types Packs/Day Years [...] Da te celecoxib (CELEBREX) 200 mg capsule TAKE 1 CAPSULE BY MOUTH DAILY 30 Capsule 2 01/03/2024 documented in this encounter Plan of Treatment Not on file documented as of this encounter Visit Diagnoses Not on filedocumented in this encounter Discontinued Medications Medication Sig Discontinue Reason Start Date End Da te celecoxib (CELEBREX) 200 mg capsule Take 1 Capsule by mouth daily. 12/02/2023 01/03/2024 documented as of this encounter Care Teams Grinder Operator External Tool Relationship Specialty Start Date End Date Kathrin Sanchez FNP [address] [place] [phone] PCP - General Family Medicine - Primary Care 10/12/23 documented as of this encounter
--- OUTSIDE RECORDS SUMMARY | 2024-05-16 10:36 | XMS_ITS | Clinical Summary ---
Author Organization [facility] Address [address] [place] [address] Care Team Providers Care Digital Analytics Manager Name Role Phone Kathrin Sanchez PRADEEP Primary Care Provider [phone] Allergies No known active allergies Medications Medication Sig Dispensed Refills Start Date End Date Status gabapentin (NEURONTIN) 800 mg tablet Take 1 Tablet by mouth 4 times daily. Active naproxen (NAPROSYN) 500 mg tablet Take 1 Tablet by mouth 2 times daily. Active lansoprazole (PREVACID) 30 mg capsule Take 1 Capsule by mouth daily. Active thiamine HCl (VITAMIN B-1 ORAL) Take 100 mg by mouth daily. Active MEDICAL MARIJUANA as needed. Active celecoxib (CELEBREX) 200 mg capsule TAKE 1 CAPSULE BY MOUTH DAILY 30 Capsule 2 01/03/2024 Active Active Problems No known active problems Social History Tobacco Use Types Packs/Day Years [...] 15:09 EDT Sexual Orientation Not on file Obstetrics History Last Filed Vital Signs Vital Sign Reading Time Taken Comments Blood Pressure - - Pulse - - Temperature - - Respiratory Rate - - Oxygen Saturation - - Inhaled Oxygen Concentration - - Weight 63.5 kg (140 lb) 10/20/2023 1344 EDT Height 170.2 cm (5' 7) 10/20/2023 1344 EDT Body Mass Index 21.93 10/20/2023 1344 EDT Plan of Treatment Health Maintenance Due Date Last Done Comments Pneumococcal Immunization (1 of 2 - PCV) 1968 RSV Immunization ( o r 60+ Years) (1 - 1-dose 60+ series) 2022 COVID-19 Vaccine ( - 2022-24 season) 2023 Hepatitis C Screen Completed 09/01/2021 Procedures Procedure Name Priority Date/Time Associated Diagnosis Comments HEPATITIS C AB W REFLEX TO HCV RNA BY PCR Routine 09/01/2021 16:42 EST from Last 3 Months or Most Recently Relevant to Health Maintenance Results * HEPATITIS C AB W REFLEX TO HCV RNA BY PCR (09/01/2021 16:42 EST) Hep C Antibody Negative Negative 09/03/2021 10:43 EST [facility] Blood VENOUS BLOOD / Unknown 09/01/2021 16:42 EST 09/02/2021 20:14 EST Provider Outr Resulting Lab CHEMISTRY & BLOOD GAS ORDERABLES [facility] [address] [place] [address] from Last 3 Months or Most Recently Relevant to Health Maintenance Care Teams Digital Analytics Manager Relationship Specialty Start Date End Date Kathrin Sanchez FNP [address] [facility] [address] [place] [address] PCP - General Family Medicine - Primary Care 10/12/23
--- OUTSIDE RECORDS SUMMARY | 2024-05-16 10:36 | XMS_ITS | Referral Summary ---
Author Organization [facility] Address [address] [place] [address] Care Team Providers Care Alarm Service Technician Name Role Phone Kathrin Sanchez PRADEEP Primary Care Provider [phone] Allergies No known active allergies Medications Medication [...] 15:09 EDT Sexual Orientation Not on file Last Filed Vital Signs Vital Sign Reading Time Taken Comments Blood Pressure - - Pulse - - Temperature - - Respiratory Rate - - Oxygen Saturation - - Inhaled Oxygen Concentration - - Weight 63.5 kg (140 lb) 10/20/2023 1344 EDT Height 170.2 cm (5' 7) 10/20/2023 1344 EDT Body Mass Index 21.93 10/20/2023 1344 EDT Functional Status Functional Status Response Date of [...] concentrating, remembering, or making decisions? No 10/20/2023 Plan of Treatment Not on file Procedures Procedure Name Priority Date/Time Associated Diagnosis Comments HEPATITIS C AB W REFLEX TO HCV RNA BY PCR Routine 09/01/2021 16:42 EST from Last 3 Months or Most Recently Relevant to Health Maintenance Results * HEPATITIS C AB W REFLEX TO HCV RNA BY PCR (09/01/2021 16:42 EST) Hep C Antibody Negative Negative 09/03/2021 10:43 EST [facility] Blood VENOUS BLOOD / Unknown 09/01/2021 16:42 EST 09/02/2021 20:14 EST Provider Outr Resulting Lab CHEMISTRY & BLOOD GAS ORDERABLES [facility] [address] [place] [address] from Last 3 Months or Most Recently Relevant to Health Maintenance Care Teams Alarm Service Technician Relationship Specialty Start Date End Date Kathrin Sanchez FNP [address] [place] [address] [address] [place] [address] PCP - General Family Medicine - Primary Care 10/12/23
--- OUTSIDE RECORDS SUMMARY | 2024-05-16 10:36 | XMS_ITS | Continuity of Care Document ---
Author Organization [facility] Address [address] [place] [address] Care Team Providers Care Typing Secretary Name Role Phone CANDELARIA COUGHLIN Primary Care Physician Encounter [facility] FIN NBR [id number] Date(s): 12/16/22 - 12/16/22 [facility] [address] [place], [place] [address] Discharge Disposition: Home Allergies, Adverse Reactions, Alerts [...] Member Role: Primary Care Physician Address: Address: [address] [address]- Care Team Related Persons Name: CECY HANNA I Address: Home [address] [place] [id number] [facility]
--- OUTSIDE RECORDS SUMMARY | 2024-05-16 10:36 | XMS_ITS | Continuity of Care Document ---
Author Organization [facility] Address [address] [place] [address] Care Team Providers Care Painting Manager Name Role Phone ROSS LEW Primary Care Physician [phone] Encounter [facility] FIN NBR [id number] Date(s): 03/17/23 - 03/17/[address] [address] Encounter Diagnosis Other specified dorsopathies, sacral and sacrococcygeal region(Final) - Low back pain, unspecified(Final) - Discharge Disposition: Home or Self Care Attending Physician: ROSS LEW Admitting Physician: ROSS LEW Referring Physician: ROSS LEW Allergies, Adverse Reactions, Alerts No Known Medication [...] Condition Confirmation Course Effective Dates Status H ealt Status Informant Cervical radiculopathy Confirmed Active Lumbar degenerative disc disease Confirmed Active Emmanuel's reflex positive Confirmed Active Balance problem Confirmed Active Spondylosis of lumbosacral spine with radiculopathy Confirmed Active Paresthesias Confirmed Active Lumbar spinal stenosis Confirmed Active Results Radiology Reports * Exam Date Time Procedure Performing Provider Status 03/17/23 3:52 PM MRI Spine Lumbar w/o Contrast Mirta Mon (Verified) Notes: (MRI Spine Lumbar w/o Contrast) Reason For Exam: SACRAL FORAMINAL STENOSIS MRI Spine Lumbar w/o Contrast EXAM DESCRIPTION: MRI Spine Lumbar w/o Contrast 03/17/2023 INDICATION: SACRAL FORAMINAL STENOSIS TECHNIQUE: Multiplanar MRI examination of the lumbar spine utilizing T1, fat-suppressed T2 and fast STIR technique. COMPARISON: None FINDINGS: Dextroscoliosis centered in the mid-lumbar region measuring approximately 20 degrees. Lumbar lordosis is satisfactory. Loss of intervertebral disc stature and signal intensity at several levels in the lumbar region on sagittal T2-weighted images consistent with desiccation and degeneration. L5 pars defects are noted. L5-S1: Mild diffuse disc bulge with bilateral facet hypertrophy. No significant spinal stenosis with AP spinal canal diameter of 16 mm. Moderate-severe right neural foraminal narrowing with mild left neural foraminal narrowing L4-5: Mild diffuse disc bulge with bilateral facet hypertrophy. No significant spinal stenosis with AP spinal canal diameter of 16 mm. Moderate-severe right neural foraminal narrowing. Mild left neural foraminal narrowing L3-4: Mild diffuse disc bulge with bilateral facet and ligamentum flavum hypertrophy. No significant spinal stenosis with AP spinal canal diameter of 14 mm. Moderate left neural foraminal narrowing. No significant right neural foraminal narrowing L2-3: Mild diffuse disc bulge. No significant spinal stenosis with AP spinal canal diameter of 13 mm. Mild bilateral neural foraminal narrowing L1-2: No focal disc protrusion, significant spinal stenosis or neural foraminal narrowing. T11-12: Mild posterior disc bulge without significant stenosis or cord encroachment. The conus is normal in morphology and signal intensity and terminates at the L1 level. No suspicious focal marrow lesions with degenerative endplate changes at several levels. No vertebral body compression deformity in the lumbar region. Paraspinal soft tissues are unremarkable. IMPRESSION: Multilevel spondylotic changes. No significant spinal stenosis. Neural foraminal narrowing noted at several levels which appears moderate-severe on the right at L4-5 and L5-S1. Please see above discussion for individual level description. Normal conus. Dextroscoliosis measuring approximately 20 degrees. JOB #: [id number] Final Signed by: Ryan Fraser MD Signed (Electronic Signature): 03/17/2023 5:20 pm Social History Social History Type Response Tobacco Current everyday tob acco user Tobacco Use:. 4 year(s). 1 Sex 1picked up smoking again after 6 years of not smoking. prior to that smoked since teenager years. Patient Care team information Care Team Personnel Name: ROSS LEW Position: No Access Member Role: Primary Care Physician Address: Address: [address] [address]- Care Team Related Persons Name: CECY HANNA I Address: Home [address] [place] [id number] [facility]
--- OUTSIDE RECORDS SUMMARY | 2024-05-16 10:36 | XMS_ITS | Encounter Summary ---
Author Organization [facility] Address [address] [place] [address] Care Team Providers Care Residential Sales Name Role Phone Unavailable Primary Care Provider Unavailabl e Reason for Referral * (Routine/Next Available) - Receiving Office to Obtain Authorization Specialty Diagnoses / Procedures Referred By Contac t Referred To Contact Procedures XR OUTSIDE IMAGES LUMBAR SPINE Imaging, External Referral ID Status Reason Start Date Expiration Date Visits Requested Visits Authorized [id number] Receiving Office to Obtain Authorization 10/20/2023 1 1 Reason for Visit * (Routine/Next Available) - Receiving Office to Obtain Authorization Specialty Diagnoses / Procedures Referred By Contac t Referred To Contact Procedures XR OUTSIDE IMAGES LUMBAR SPINE Imaging, External Referral ID Status Reason Start Date Expiration Date Visits Requested Visits Authorized [id number] Receiving Office to Obtain Authorization 10/20/2023 1 1 Encounter Details Date Type Department Care Team (Latest Contact Info) Description 11/11/2020 - 11/11/2020 23:59 EDT Hospital Encounter [facility] Secondary Reads [place] Discharge Disposition: Home or Self Care Social History Tobacco Use Types Packs/Day Years Used Date Smoking Tobacco: Never Assessed Interpersonal Safety Answer Date Record ed Physically Hurt Never 07/31/2020 Verbally Threaten Not on file 07/31/2020 Sex and Gender Information Value Date Recorded Sex Assigned at Not on file Gender Identity Male 10/12/2023 15:09 EDT Sexual Orientation Not on file documented as of this encounter Discharge Disposition Disposition Code Departure Means Destination Home or Self Care documented in this encounter Plan of Treatment Not on file documented as of this encounter Procedures Procedure Name Priority Date/Time Associated Diagnosis Comments XR OUTSIDE IMAGES LUMBAR SPINE Routine 11/11/2020 14:31 EDT documented in this encounter Results * XR OUTSIDE IMAGES LUMBAR SPINE (11/11/2020 14:31 EDT) Narrative 10/20/2023 14:32 EDT This is a non-reportable exam. External Imaging IMG OTHER IMAGING OR DERABLES documented in this encounter Visit Diagnoses Not on filedocumented in this encounter
--- OUTSIDE RECORDS SUMMARY | 2024-05-16 10:36 | XMS_ITS | Encounter Summary ---
Author Organization [facility] Address [address] [place] [address] Care Team Providers Care Paper Folding Machine Operator Name Role Phone Unavailable Primary Care Provider Unavailabl e Reason for Referral * (Routine/Next Available) - Receiving Office to Obtain Authorization Specialty Diagnoses / Procedures Referred By Contac t Referred To Contact Procedures MR OUTSIDE IMAGES LUMBAR SPINE Imaging, External Referral ID Status Reason Start Date Expiration Date Visits Requested Visits Authorized [id number] Receiving Office to Obtain Authorization 10/20/2023 1 1 Reason for Visit * (Routine/Next Available) - Receiving Office to Obtain Authorization Specialty Diagnoses / Procedures Referred By Contac t Referred To Contact Procedures MR OUTSIDE IMAGES LUMBAR SPINE Imaging, External Referral ID Status Reason Start Date Expiration Date Visits Requested Visits Authorized [id number] Receiving Office to Obtain Authorization 10/20/2023 1 1 Encounter Details Date Type Department Care Team (Latest Contact Info) Description 03/17/2023 - 03/17/2023 23:59 EDT Hospital Encounter [facility] Secondary Reads [place] Discharge Disposition: Home [...] Procedure Name Priority Date/Time Associated Diagnosis Comments MR OUTSIDE IMAGES LUMBAR SPINE Routine 03/17/2023 14:31 EDT documented in this encounter Results * MR OUTSIDE IMAGES LUMBAR SPINE (03/17/2023 14:31 EDT) Narrative 10/20/2023 14:31 EDT This is a non-reportable exam. External Imaging IMG OTHER IMAGING OR DERABLES documented in this encounter Visit Diagnoses Not on filedocumented in this encounter
--- OUTSIDE RECORDS SUMMARY | 2024-05-16 10:36 | XMS_ITS | Encounter Summary ---
Author Organization [facility] Address [address] [place] [address] Care Team Providers Care Interactive Media Marketing Specialist Name Role Phone Kathrin Sanchez PRADEEP Primary Care Provider [phone] Encounter Details Date Type Department Care Team (Late st Contact Info) Description 07/31/2020 Lab Requisition [facility] Pathology & Laboratory Medicine - [address] [address] Outr Resulting Lab, Provider Social History Tobacco [...] Procedure Name Priority Date/Time Associated Diagnosis Comments HIV 1/2 ANTIGEN AND ANTIBODY, 4TH GENERATION Routine 07/31/2020 10:15 EST documented in this encounter Results * HIV 1/2 ANTIGEN AND ANTIBODY, 4TH GENERATION (07/31/2020 10:15 EST) HIV 1 and 2 Antibody/p24 Antigen, 4th Generation Negative Negative 08/01/2020 9:32 EST [facility] Comment: If acute HIV-1 infection is suspected in a high risk ??patient, submit plasma specimen for HIV-1 RNA quantitation test. Fourth Generation assay performed on the Siemens Isogenicaaur. Blood VENOUS BLOOD / Unknown 07/31/2020 10:15 EST 07/31/2020 20:13 EST Provider Outr Resulting Lab IMMUNOLOGY A ND SEROLOGY ORDERABLES [facility] [address] [place] [address] documented in this encounter Visit Diagnoses Not on filedocumented in this encounter Care Teams Interactive Media Marketing Specialist Relationship Specialty Start Date End Date Kathrin Sanchez FNP [address] [facility] [address] [place] [phone] PCP - General Family Medicine - Primary Care 10/12/23 documented as of this encounter
--- OUTSIDE RECORDS SUMMARY | 2024-05-16 10:36 | XMS_ITS | Encounter Summary ---
Author Organization [facility] Address [address] [place] [address] Care Team Providers Care Track Inspecting Supervisor Name Role Phone Kathrin Sanchez Primary Care Provider [phone] Reason for Visit * Reason Comments Pain * Consult (Routine) - Receiving Office to Obtain Authorization Specialty Diagnoses / Procedures Referred By Ferny maldonado Referred To Contact Orthopedic Surgery Diagnoses Chronic back pain Kathrin Sanchez FNP [address] [facility] [address] [place] [address] [facility] Ortho Spine [address] [place] [address] Referral ID Status Reason Start Date Expiration Date Visits Requested Visits Authorized [id number] Receiving Office to Obtain Authorization 1 1 Encounter Details Date Type Department Care Team (Late st Contact Info) Description 10/20/2023 13:40 EDT Office Visit [facility] Spine Program [place] [address] Snehal Wilkinson PA-C [address] [facility] [place] [address] Low back pain radiating to [...] on file documented as of this encounter Last Filed Vital Signs Vital Sign Reading Time Taken Comments Blood Pressure - - Pulse - - Temperature - - Respiratory Rate - - Oxygen Saturation - - Inhaled Oxygen Concentration - - Weight 63.5 kg (140 lb) 10/20/2023 1344 EDT Height 170.2 cm (5' 7) 10/20/2023 1344 EDT Body Mass Index 21.93 10/20/2023 1344 EDT documented in this encounter Functional Status Functional Status Response [...] as of this encounter Progress Notes * Snehal Wilkinson PA-C - 10/20/2023 1340 EDT Mr. Hernandez is a 63 y.o. pleasant male who presents to the clinic today, 10/20/2023, with 70% LBP. 30% R LE pain affecting: A. THIGH: Anterior aspect. B. LOWER LEG: Lateral aspect. Numbness/tingling as well C. FOOT: No symptoms. ONSET: This is a chronic issue that has been present since early adulthood, initially off-and-on. Has worsened over the last year. Symptoms wax and wane, but they are present everyday. ALLEVIATING FACTORS: Walking. AGGRAVATING FACTORS: Sitting, flexing his back, extending his back. PAIN: /. CONSERVATIVE TX: Physical Therapy: Yes, minimal relief. CHIRO: No. Steroid injections: ROB and RFA -somewhat helpful. Medications: Naprosyn -somewhat helpful. SOCIAL: SMOKIN PPD. WORK: Part-time construction. Patient lives with his . Review of Systems Constitutional: Positive for activity change. Negative for unexpected weight change. Eyes: Negative for visual disturbance. Respiratory: Negative for chest tightness. Gastrointestinal: Negative for constipation. Genitourinary: Negative for difficulty urinating. Musculoskeletal: Positive for low back pain. Negative for neck pain. Skin: Negative for rash. Neurological: positive for numbness. Psychiatric/Behavioral: Negative for agitation and behavioral problems. Physical Exam Constitutional: Patient is oriented to person, place, and time, and appears well-developed and well-nourished. Eyes: EOM are normal. Pupils are equal, round, and reactive to light. Cardiovascular: Normal rate. Pulmonary/Chest: Effort normal and breath sounds normal. Neurological: Patient is alert and oriented to person, place, and time. Skin: Skin is warm and dry. No rash noted. Psychiatric: Patient has a normal mood and affect, and behavior is normal. Family and Social History: Reviewed. Back Exam from initial visit in 10/20/2023: GAIT: Antalgic. HEEL & TOE WALKING: NEG. LESIONS, RASHES OR HAIR YAZMIN: NEG. FROM, but pain is elicited with bending and extension/rotation of the lumbar spine. TENDERNESS ON PALPATION: NEG. STRENGTH: 5/5 REFLEXES: Patellar 2/4 B/L; Achilles 2/4 B/L. BABINSKI: Down. CLONUS: NEG. DP: 2/2. SENSATION: Intact. SLR RIGHT: NEG. LEFT: NEG. HIP ROM: Full. LESA'S: NEG. Today, 10/20/2023, I ordered plain radiographs and I independently reviewed the following radiographs: Lumbar Plain radiographs (AP/Lat/Flex/Ex): Five (5) non-rib bearing lumbar vertebrae S shaped thoracolumbar curvature Multilevel degenerative disc and facet changes No fractures or pars defects noted Lumbar MRI - February 2023: Multilevel degenerative disc and facet changes L4-L5: Moderate to severe right neuroforaminal narrowing L5-S1: Moderate severe right neuroforaminal narrowing Assessment: 63 y.o. male with 70% LBP most likely secondary to degenerative disc and facet disease. 30% Right LE pain along the L4 dermatome most likely radicular in nature. MRI concordant with patient's symptoms. He has agreed and verbalized understanding of the following plan. Plan: Patient declines the offer for more steroid injection and prefers to see a surgeon at this point. Continue activity as tolerated. Continue with in-home exercise program. Referred to Dr. Kasper for surgical consultation. CC: Dr. Daniel Leyva was the attending physician available in the clinic today if needed. A consultation was not required. documented in this encounter Plan of Treatment Not on file documented as of this encounter Visit Diagnoses Diagnosis Low back pain radiating to right leg- Primary Lumbago documented in this encounter Historical Medications * This list may reflect changes made after this encounter. Medication Sig Dispensed Refills Start Date End Date MEDICAL MARIJUANA as needed. thiamine HCl (VITAMIN B-1 ORAL) Take 100 mg by mouth daily. lansoprazole (PREVACID) 30 mg capsule Take 1 Capsule by mouth daily. naproxen (NAPROSYN) 500 mg tablet Take 1 Tablet by mouth 2 times daily. gabapentin (NEURONTIN) 800 mg tablet Take 1 Tablet by mouth 4 times daily. added in this encounter Care Teams Track Inspecting Supervisor Relationship Specialty Start Date End Date Kathrin Sanchez FNP [address] [place] [phone] PCP - General Family Medicine - Primary Care 10/12/23 documented as of this encounter
--- OUTSIDE RECORDS SUMMARY | 2024-05-16 10:36 | XMS_ITS | Encounter Summary ---
Author Organization [facility] [place] [address] Care Team Providers Care Infrastructure Software Engineer Name Role Phone Kathrin Sanchez APRN Primary Care Provider [phone] Encounter Details Date Type Department Care Team (Late st Contact Info) Description 09/11/2020 Ancillary Procedure Radiology Library at [facility] [place] [phone] Kathrin Sanchez APRN [address] [place], [place] [address] Social History Tobacco Use Types Packs/Day Years [...] FILM LIBRARY STORAGE ONLY MR SPINE Routine 09/11/2020 12:00 AM EST documented in this encounter Results * Film Library- Storage Only MR Spine (09/11/2020 12:00 AM EST) Narrative [facility] - 08/05/2021 3:54 PM EST This exam is auto-finalizing. It's purpose is for storage only. Kathrin Sanchez APRN IMG FILM LIBRARY ORD ERABLES [place], [place] documented in this encounter Visit Diagnoses Not on filedocumented in this encounter Care Teams Infrastructure Software Engineer Relationship Specialty Start Date End Date Kathrin Sanchez APRN [address] [place], [place] [address] PCP - General Family Medicine 11/29/19 documented as of this encounter
--- OUTSIDE RECORDS SUMMARY | 2024-05-16 10:36 | XMS_ITS | Encounter Summary ---
Author Organization [facility] Address [address] [place] [address] Care Team Providers Care Raw Sampler Name Role Phone Kathrin Sanchez PRADEEP Primary Care Provider [phone] Encounter Details Date Type Department Care Team (Late st Contact Info) Description 07/31/2020 Lab Requisition [facility] Pathology & Laboratory Medicine - [address] [address] Outr Resulting Lab, Provider Social History Tobacco [...] Procedure Name Priority Date/Time Associated Diagnosis Comments CHLAMYDIA/N. GONORRHOEAE AMPLIFIED NUCLEIC ACID Routine 07/31/2020 10:15 EST documented in this encounter Results * CHLAMYDIA/N. GONORRHOEAE AMPLIFIED RNA (07/31/2020 10:15 EST) Neisseria gonorrhoeae Result Negative Negative 08/01/2020 15:28 EST [facility] Chlamydia trachomatis Result Negative Negative 08/01/2020 15:28 EST [facility] Urine URINE / Unknown 07/31/2020 1 0:15 EST 07/31/2020 20:45 EST Provider Outr Resulting Lab MICROBIOLOGY - GENERAL ORDERABLES [facility] [address] [place] [address] documented in this encounter Visit Diagnoses Not on filedocumented in this encounter Care Teams Raw Sampler Relationship Specialty Start Date End Date Kathrin Sanchez FNP [address] [place] [address] [place] [phone] PCP - General Family Medicine - Primary Care 10/12/23 documented as of this encounter
--- OUTSIDE RECORDS SUMMARY | 2024-05-16 10:36 | XMS_ITS | Encounter Summary ---
[place] [address] Care Team Providers Care Job Training Supervisor Name Role Phone Caity Kulkarni LAURITA Primary Care Provider + Reason for Visit * Reason Onset Date Comments Erectile Dysfunction 12/21/2017 X ~ 3 month Encounter Details Date Type Department Care Team (Late st Contact Info) Description 12/21/2017 Telephone [place] [address] Janae Heart, RN Erectile Dysfunction (X ~ 3 month) Social History Tobacco Use Types Packs/Day Years Used Date Smoking Tobacco: Never Assessed Sex and Gender Information Value Date Recorded Sex Assigned at Not on file Gender Identity Not on file Sexual Orientation Not on file documented as of this encounter Miscellaneous Notes * Telephone Encounter - Janae Heart, RN - 12/21/2017 4:43 PM EDT Received call via the Transfer Center from Bridget Kulkarni [facility] re Mr Ivan Hernandez who she is seeing in clinic in FU to a ED visit, ? September 2017. Caller reports that pt has a h/o tl pain for decades was seen in [facility] ED more recently, ? September 2017. Reports since that visit pt has had a lumbar sacral transformational steroid injection in the [facility] yesterday and is in clinic today reporting an improvements in his symptoms for which theinjection was performed. Caller reaching out to us out of concern that pt is reporting erectile dysfunction that he states started ~ 3 months ago after starting the gabapentin that was initiated in the ED, Caller stated pt takes Gabapentin 800 mg 3 X per day. Caller states she researched the correlation of eryectile dysfunction with Gabapentin and noted that it is a documented SE; as low as 2%. Caller reports that pt denies any saddle anesthesia, denies bowel or bladder incontinence, and has some base line lower extremity weakness but reports that this is improving, not worsening. Per caller, pt's symptoms have not changed since MRI was performed; She reports the erectile dysfunction Has been present for a while; She is just seeing pt today and hearing about it for the first time. Advised caller that it would be unusual to have erectile dysfunction r/t the spine in the absence of bowel/bladder changes, progressive lower extremity weakness or any saddle anesthesia. Explained that if the dysfunction was related to the spine that the evaluation would not be urgent/emergent given the 3 month duration. Offered to see pt as an outpt in the Sp[facility] Center if his SS symptoms return or he is interested in a clinic evaluation. Caller was appreciaitive of the review And is in agreement with our input. Above reviewed with Mr Hill; along with review of uploaded MRI. documented in this encounter Plan of Treatment Not on file documented as of this encounter Visit Diagnoses Not on filedocumented in this encounter Care Teams Job Training Supervisor Relationship Specialty Start Date End Date Caity Kulkarni APRN [address] [place] [address] PCP - General Family Medicine 10/12/17 11/28/19 documented as of this encounter
--- OUTSIDE RECORDS SUMMARY | 2024-05-16 10:36 | XMS_ITS | Encounter Summary ---
Author Organization [facility] [place] [address] Care Team Providers Care Legal Billing Coordinator Name Role Phone Kathrin Sanchez APRN Primary Care Provider [phone] Encounter Details Date Type Department Care Team (Late st Contact Info) Description 05/08/2020 Ancillary Procedure [facility]iology [facility] [place] [phone] Kathrin Sanchez APRN [address] [place], [place] [address] Social History Tobacco Use Types Packs/Day Years [...] FILM LIBRARY STORAGE ONLY DX SPINE Routine 05/08/2020 12:00 AM EDT documented in this encounter Results * Film Library- Storage Only DX Spine (05/08/2020 12:00 AM EDT) Narrative [facility] - 08/05/2021 3:53 PM EST This exam is auto-finalizing. It's purpose is for storage only. Kathrin Sanchez APRN IMG FILM LIBRARY ORD ERABLES [place], [place] documented in this encounter Visit Diagnoses Not on filedocumented in this encounter Care Teams Legal Billing Coordinator Relationship Specialty Start Date End Date Kathrin Sanchez APRN [address] [place], [place] [address] PCP - General Family Medicine 11/29/19 documented as of this encounter
--- OUTSIDE RECORDS SUMMARY | 2024-05-16 10:36 | XMS_ITS | Encounter Summary ---
Author Organization [facility] Address [address] [place] [address] Care Team Providers Care Mixer Attendant Name Role Phone Kathrin Sanchez Primary Care Provider [phone] Encounter Details Date Type Department Care Team (Latest Contact Info) Description 10/20/2023 13:15 EDT - 10/20/2023 23:59 EDT Hospital Encounter [facility] [address] [place], [place] [id number] Discharge Disposition: Home or Self Care Social [...] No 10/20/2023 documented as of this encounter Medications at Time of Discharge Medication Sig Dispensed Refills Start Date End Date gabapentin (NEURONTIN) 800 mg tablet Take 1 Tablet by mouth 4 times daily. lansoprazole (PREVACID) 30 mg capsule Take 1 Capsule by mouth daily. MEDICAL MARIJUANA as needed. naproxen (NAPROSYN) 500 mg tablet Take 1 Tablet by mouth 2 times daily. thiamine HCl (VITAMIN B-1 ORAL) Take 100 mg by mouth daily. documented as of this encounter Discharge Disposition [...] calcifications of the abdominal aorta are present. [id number] Narrative 10/24/2023 12:31 EDT XR ENTIRE SPINE [...] Atheroscleroticcalcifications of the abdominal aorta are present. [id number] Snehal Wilkinson PA-C [facility] ORDERABLES documented in this encounter Visit Diagnoses Not on filedocumented in this encounter Care Teams Mixer Attendant Relationship Specialty Start Date End Date Kathrin Sanchez FNP [address] [place] [phone] PCP - General Family Medicine - Primary Care 10/12/23 documented as of this encounter
--- OUTSIDE RECORDS SUMMARY | 2024-05-16 10:36 | XMS_ITS | Clinical Summary ---
[place] [address] Care Team Providers Care Side Door Man Name Role Phone Kathrin Sanchez APRN Primary Care Provider Social History Tobacco Use Types Packs/Day Years Used Date Smoking Tobacco: Never Assessed Sex and Gender Information Value Date Recorded Sex Assigned at Not on file Gender Identity Not on file Sexual Orientation Not on file Plan of Treatment Health Maintenance Due Date Last Done Comments CT Colonography 1960 Colonoscopy 1960 Colorectal Cancer Screening 1960 FIT DNA 1960 FIT 1960 Sigmoidoscopy (10 year) with FIT yearly 1960 Sigmoidoscopy 1960 HIV screen 1980 Hepatitis C Screening 1980 Lipid Screening 1980 Tetanus/Diphtheria/Pertussis Vaccines (1 - Tdap) 09/25 Zoster vaccine (1 of 2) 2012 Advance Directive 2017 Covid-19 Vaccine (1 - season) 2024 Influenza (Flu) vaccine (1 o f 1 - Influenza standard series) 03/25/2024 Care Teams Side Door Man Relationship Specialty Start Date End Date Kathrin Sanchez APRN [address] [place], [place] [address] PCP - General Family Medicine 11/29/19
--- OUTSIDE RECORDS SUMMARY | 2024-05-16 10:36 | XMS_ITS | Encounter Summary ---
Author Organization [facility] Address [address] [place] [address] Care Team Providers Care Bridge Crew Member Name Role Phone Kathrin Sanchez PRADEEP Primary Care Provider [phone] Encounter Details Date Type Department Care Team (Late st Contact Info) Description 09/02/2021 Lab Requisition [facility] Pathology & Laboratory Medicine - [address] [address] Outr Resulting Lab, Provider Social History Tobacco [...] RNA BY PCR Routine 09/01/2021 16:42 EST PSA TOTAL, DIAGNOSTIC Routine 09/01/2021 16:42 EST documented in this encounter Results * PSA TOTAL, DIAGNOSTIC (09/01/2021 16:42 EST) PSA 0.4 0.0 - 3.5 ng/mL 09/02/2021 21:40 EST [facility] Blood VENOUS BLOOD / Unknown 09/01/2021 16:42 EST 09/02/2021 20:14 EST Narrative [facility] - 09/02/2021 21:40 EST NOTE: Serum PSA concentration should not be interpreted as absolute evidence for the presence or absence of malignant disease. Assayed on Siemens ADVIA Centaur XPT using chemiluminescent technology.??Values obtained by using different assay methods cannot be used interchangeably. Provider Outr Resulting Lab CHEMISTRY & BLOOD GAS ORDERABLES Performing Organization Address City/[facility]/ZIP Co de Phone Number [facility] [address] [place] [address] * HEPATITIS C AB W REFLEX TO HCV RNA BY PCR (09/01/2021 16:42 EST) Hep C Antibody Negative Negative 09/03/2021 10:43 EST [facility] Blood VENOUS BLOOD / Unknown 09/01/2021 16:42 EST 09/02/2021 20:14 EST Provider Outr Resulting Lab CHEMISTRY & BLOOD GAS ORDERABLES Performing Organization Address City/[facility] Co de Phone Number [facility] [address] [place] [address] documented in this encounter Visit Diagnoses Not on filedocumented in this encounter Care Teams Bridge Crew Member Relationship Specialty Start Date End Date Kathrin Sanchez FNP [address] [place] [phone] PCP - General Family Medicine - Primary Care 10/12/23 documented as of this encounter
[2024-05-16 14:44] LABS: HCT 44.9 % (40.0-50.0); HGB 15.2 g/dL (13.5-17.5); MCH 31.9 pg (27.0-33.0); MCHC 33.9 % (32.0-36.0); MCV 94 fL (80-95); MPV 10.8 fL (8.0-11.0); Platelet Count 252 10^3/uL (130-400); RBC 4.76 10^6/uL (4.36-5.78); RDW 11.9 % (11.8-14.1); RDW-SD 41.6 fL; WBC 6.95 10^3/uL (4.4-10.8)
[2024-05-16 14:59] LABS: ALT 24 U/L (16-63); AST 27 U/L (15-37); Albumin 4.4 g/dL (3.4-5.0); Alkaline Phosphatase 91 U/L (46-116); Anion Gap 7.7 mmol/L (3-11); BUN 27 mg/dL (7-18); Bilirubin, Total 0.54 mg/dL (0.2-1.0); CO2 27.3 mmol/L (21.0-32.0); CREATININE 1.2 mg/dL (0.70-1.30); Calcium 9.5 mg/dL (8.5-10.1); Calculated LDL 133 mg/dL (<100); Chloride 104 mmol/L (98-107); Cholesterol 198 mg/dL (<200); Glucose 68 mg/dL (74-106); HDL Cholesterol 59 mg/dL (40-60); Potassium 4.7 mmol/L (3.5-5.1); Sodium 139 mmol/L (136-145); Total Protein 7.5 g/dL (6.4-8.2); Triglyceride 34 mg/dL (<150)
[2024-05-16 22:56] LABS: PSA, Screening 0.3 ng/mL (<=4.5)
== END 2024-05-16 10:35 | disposition home or self-care (01) ==
LOC: NCHCN 10:34
PROVIDERS: PCP Nurse Practitioner Family; Visit Provider Nurse Practitioner Family
DX: I25.84 Coronary atherosclerosis due to calcified coronary lesion (principal); Z12.5 Encounter for screening for malignant neoplasm of prostate; F10.10 Alcohol abuse, uncomplicated
CPT/HCPCS: 80053; 80061; 84153; 85027

== ENCOUNTER 2025-03-13 02:09 | Outpatient (CLI) | payer MEDICAID, SELFPAY ==
--- NOTE | 2025-03-13 | DI.CTLCSR_ITS ---
Exam(s) CT CHEST LUNG CANCER SCREEN EXAM: CT CHEST LUNG CANCER SCREEN CLINICAL HISTORY: TOBACCO USE Z72.0 SCREENING LUNG CANCER. TECHNIQUE: Imaging Protocol: Low Dose Technique CONTRAST MATERIAL: None COMPARISON: CT CT CHEST LUNG CANCER SCREEN from 10/18/[address] CHEST LUNG CANCER SCREEN from 10/24/2023 FINDINGS: CHEST: LUNGS: There few small bilateral lung nodules all measuring less than 5 mm and unchanged from previous.. There is also a pleural based 3 millimeter unchanged nodule in the posterior basal segment of the right lower lobe. No new ominous nodules. No confluent infiltrates. No pleural effusions. MEDIASTINUM: There is no obvious hilar nor mediastinal adenopathy. CARDIAC: Heart size is normal. There is no pericardial effusion.Caliber of the thoracic aorta is within normal limits. OTHER: OSSEOUS: No significant osseous lesions.No fractures.. IMPRESSION: 1. Stable benign-appearing bilateral sub cm lung nodules, unchanged from CT scans of 10/18/2022 and 10/24/2023. 2. No other pulmonary findings nor pleural effusions nor intrathoracic adenopathy. 3. Lung RADS Cat 2 - Benign Appearance / Behavior: Nodules with a very low likelihood of becoming a clinically active cancer due to size or lack of growth Lung-RADS 1.0 CATEGORIES: Category 0 - Prior chest CT exam(s) being located for comparison. Category 1 - Annual screening in 12 months. No nodules or definitely benign nodules. Category 2 - Annual screening in 12 months. Benign appearance. Nodules with low likelihood of becoming active cancer. Category 3 - 6-month follow-up. Probably benign. Short-term follow-up suggested. Nodules with low likelihood of becoming active cancer. Category 4A - 3-month follow-up and CT/PET if >8 mm in size. Suspicious finding. Findings which require additional testing. Category 4B - Findings which require additional testing and tissue sampling. Category 4X - Category 3 or 4 nodules with additional features or imaging findings that increases the suspicion of malignancy. Modifier S- Potentially clinically significant findings (non lung cancer) RADIATION DOSE DELIVERED: 32.86mGy.cm Total DLP DATA REPOSITORY: All CT scans at this facility are submitted to the National Radiology Data Registry (NRDR) Dose Index Registry (DIR) with the [employer] (ACR). RADIATION OPTIMIZATION: All CT scans at this facility use at least one of these dose optimization techniques: automated exposure control; mA and/or kV adjustment per patient size (includes targeted exams where dose is matched to clinical indication); or iterative reconstruction.
== END 2025-03-13 02:29 ==
PROVIDERS: PCP Nurse Practitioner Family; Visit Provider Nurse Practitioner Family
DX: Z12.2 Encounter for screening for malignant neoplasm of respiratory organs (principal); Z72.0 Tobacco use; R91.8 Other nonspecific abnormal finding of lung field
CPT/HCPCS: 71271

== ENCOUNTER 2025-03-27 10:55 | Outpatient (REF) | payer MEDICAID, SELFPAY ==
--- NOTE | 2025-03-27 10:52 | SKI_PTH ---
PATIENT: Ivan Hernandez LOC: [facility] U#:[id number] AGE/SX: 64/M ROOM: RE03/27/[address]: LORRIE Clark : 1960 BED: DIS: 03/27/2025 SPEC #: [id number] RECD: 03/27/25 12:45 STATUS: NIRAV REMario #: [id number] ALLEN: 03/27/25 10:[address]: Samreen Jay DEPT: Surgical Specimen RECD BY: Marilyn Ramires ENTERED: 03/27/25 12:45 SP TYPE: SKI OTHR DR: Kathrin Sanchez Tissues: 1 - SKIN BIOPSY(SHAVE/PUNCH) Procedures: GROSS AND MICRO LEVEL 5 Comments: [id number]
== END 2025-03-27 10:56 | disposition home or self-care (01) ==
LOC: LBN 10:55
PROVIDERS: PCP Nurse Practitioner Family; Visit Provider Physical Therapy Assistant
DX: D23.72 Other benign neoplasm of skin of left lower limb, including hip (principal)
CPT/HCPCS: 88305; 88307